=== PATIENT | female | born 1980 | race Hispanic/Latino ===

== ENCOUNTER 2019-04-15 15:16 | Inpatient (IN) | payer OTHER ==
[2019-04-15 15:23] VITALS: BMI 22.6
[2019-04-15 15:33] LABS: ABG ALLEN TEST POS; ARTERIAL BLOOD GAS HCO3 0.7 mmol/L (21-28); ARTERIAL BLOOD GAS O2 SAT 98.5 % (95-98); ARTERIAL BLOOD GAS PCO2 11 mm/Hg (35-45); ARTERIAL BLOOD GAS PH 6.83 (7.35-7.45); ARTERIAL BLOOD GAS PO2 229 mm/Hg (80-100); ARTERIAL BLOOD GAS TCO2 2.1 mmol/L (22-28)
[2019-04-15] MEDS ORDERED: Sodium Chloride 0.9% 1,000 ML IV ONE ×6 (15:41→17:14)
[2019-04-15] MEDS ORDERED: Sodium Bicarbonate (8.4%) 50 Meq Syringe IVP ONE ×6 (15:41→18:20)
[2019-04-15] MEDS ORDERED: Insulin Human Regular 100 UNIT in Sodium Chloride 0.9% 99 ML IV STA ×2 (15:45→23:18)
[2019-04-15] MEDS ORDERED: Sodium Bicarbonate (8.4%) 50 mEq Vial ONE ×2 (15:45→15:59)
[2019-04-15] MEDS ORDERED: (Novolin R) Insulin Human Regular 100 units/ml vial IV STA (15:45)
[2019-04-15] MEDS ORDERED: Calcium Gluconate 4.65 mEq/10 ml Inj ONE (15:57)
[2019-04-15] MEDS ORDERED: Naloxone 0.4 mg/ml Inj (Adult) ONE (15:59)
[2019-04-15 16:00] LABS: INR 0.9; PARTIAL THROMBOPLASTIN TIME 25.2 SECONDS (21-34); PROTHROMBIN TIME 10.3 SECONDS (9.7-12.2)
[2019-04-15 16:02] LABS: BASO # 0.1 K/uL (0.0-0.2); BASO % 0.2 % (0.0-2.0); EOS % 0.2 % (0.0-4.0); LYMPH # 1.3 K/uL (1.0-4.3); LYMPH % 4.2 % (20.0-40.0); MEAN CELL VOLUME 111.6 fL (81.0-99.0); MEAN CORPUSCULAR HEMOGLOBIN 30.4 pg (27.0-31.0); MEAN CORPUSCULAR HGB CONC 27.2 g/dL (33.0-37.0); MEAN PLATELET VOLUME 9.4 fL (7.2-11.7); MONO # 1.5 K/uL (0.0-0.8); MONO % 4.7 % (0.0-10.0); NEUT # 28.4 K/uL (1.8-7.0); NEUT % 90.7 % (50.0-75.0); PLATELET COUNT 442 K/uL (130-400); RBC 3.76 Mil/uL (3.80-5.20); RED CELL DISTRIBUTION WIDTH 15.6 % (11.5-14.5); WHITE BLOOD COUNT 31.3 K/uL (4.8-10.8)
[2019-04-15] MEDS ORDERED: (Novolin R) Insulin Human Regular 100 units/ml vial ONE (16:06)
[2019-04-15] MEDS ORDERED: Norepinephrine 8 MG in Sodium Chloride 0.9% 242 ML IV PRN (16:09)
[2019-04-15 16:13] LABS: CK-MB 4.91 ng/mL (0.0-3.38)
[2019-04-15 16:26] LABS: HEMOGLOBIN 11.4 g/dL (11.0-16.0)
[2019-04-15 16:31] LABS: ALB/GLOB RATIO 2.4 (1.0-2.1); ALBUMIN 4.1 g/dL (3.5-5.0); ALT/SGPT 20 U/L (9-52); AST/SGOT 20 U/L (14-36); BLOOD UREA NITROGEN 60 mg/dL (7-17); GFR NON-AFRICAN AMERICAN 11
--- NOTE | 2019-04-15 16:33 | RAD ---
Date of service: 04/15/2019 HISTORY: hyperventilation, DKA COMPARISON: No prior. TECHNIQUE: 1 view obtained. FINDINGS: LUNGS: No active pulmonary disease. PLEURA: No significant pleural effusion identified, no pneumothorax apparent. CARDIOVASCULAR: No aortic atherosclerotic calcification present. Normal cardiac size. No pulmonary vascular congestion. OSSEOUS STRUCTURES: No significant abnormalities. VISUALIZED UPPER ABDOMEN: Normal. OTHER FINDINGS: None. IMPRESSION: No active disease.
--- NOTE | 2019-04-15 16:46 | CP.PCM.CON ---
<Duarte Angel - Last Filed: 04/15/19 18:03> History of Present Illness - History of Present Illness History of Present Illness: Duarte Angel PGY1 Consult Note for Dr. Annika Chamberlain Patient is a 38yo F with PMH DM type 1 brought in by EMS to ED for unresponsiveness. Patient was found with multiple pill bottles and given narcan x2 in the field. Glucose in the field was >600. Patient was given narcan x2, NS x3 bags, Bicarb 50meq x5 in ED. Patient also given 5ml 0.1 epi, became awake but still not answering questions or following commands. SxH: L facial reconstructions, exlap, tonsillectomy FamH: father [place], mother HTN SocH: no tobacco use. substance use, unknown specific type Allergies: hydrocodone Meds: as per EMR Review of Systems - Review of Systems Systems not reviewed;Unavailable: Acuity of Condition, Unstable Vital Signs, Respiratory Distress, Intoxicated Past Patient History - Infectious Disease Hx of Infectious Diseases: None - Past Medical History & Family History Past Medical History?: Yes - Past Social History Smoking Status: Never Smoked - CARDIAC Hx Cardiac Disorders: No - PULMONARY Hx Respiratory Disorders: No - NEUROLOGICAL Hx Neurological Disorder: No - HEENT Hx HEENT Problems: No - RENAL Hx Chronic Kidney Disease: No - ENDOCRINE/METABOLIC Hx Endocrine Disorders: Yes Hx Diabetes Mellitus Type 1: Yes - HEMATOLOGICAL/ONCOLOGICAL Hx Blood Disorders: No - INTEGUMENTARY Hx Dermatological Problems: No - MUSCULOSKELETAL/RHEUMATOLOGICAL Hx Musculoskeletal Disorders: Yes Other/Comment: LYME DISEASE - GASTROINTESTINAL Hx Gastrointestinal Disorders: No - GENITOURINARY/GYNECOLOGICAL Hx Genitourinary Disorders: No - PSYCHIATRIC Hx Psychophysiologic Disorder: No Hx Emotional Abuse: No Hx Physical Abuse: No Hx Substance Use: No - SURGICAL HISTORY Hx Surgeries: Yes Hx Tonsillectomy: Yes Other/Comment: FACIAL RECONSTRUCTION,LYMPH NODE BX - ANESTHESIA Hx Anesthesia: Yes Hx Anesthesia Reactions: No Hx Malignant Hyperthermia: No Meds Allergies/Adverse Reactions: Allergies Allergy/AdvReac Type Severity Reaction Status Date / Time hydrocodone Allergy ITCHING Verified 04/01/17 10:02 - Medications Medications: Current Medications Insulin Human Regular 100 unit (/ Sodium Chloride) 100 mls @ 10 mls/hr IV .Q10H STA Stop: 04/16/19 01:44 Sodium Chloride (Sodium Chloride 0.9%) 1,000 mls @ 1,000 mls/hr IV .Q1H ONE Stop: 04/15/19 16:46 Piperacillin Sod/Tazobactam Sod (Zosyn 3.375 Gm Iv Premix) 3.375 gm in 50 mls @ 100 mls/hr IVPB Q8H COSME; Protocol Norepinephrine Bitartrate 8 mg (/ Sodium Chloride) 250 mls @ 7.5 mls/hr IV .Q24H PRN; Protocol PRN Reason: TITRATE PER MD ORDER Physical Exam - Constitutional Appears: In Acute Distress, Unkempt - Head Exam Head Exam: ATRAUMATIC, NORMAL INSPECTION, NORMOCEPHALIC - Eye Exam Pupil Exam: Fixed, Mydriatic - ENT Exam ENT Exam: Mucous Membranes Dry - Neck Exam Neck exam: Positive for: Normal Inspection - Respiratory Exam Respiratory Exam: Decreased Breath Sounds, Respiratory Distress. absent: Rales, Wheezes, Stridor - Cardiovascular Exam Cardiovascular Exam: Tachycardia, +S1, +S2. absent: Gallop, Rubs - GI/Abdominal Exam GI & Abdominal Exam: Normal Bowel Sounds, Soft. absent: Distended, Guarding, Tenderness - Extremities Exam Extremities exam: Positive for: normal capillary refill, normal inspection, pedal pulses present - Back Exam Back exam: NORMAL INSPECTION - Neurological Exam Neurological exam: Altered - Skin Skin Exam: Intact, Normal Color Results - Vital Signs Recent Vital Signs: Last Vital Signs Temp 94 F L 04/15/19 16:06 Pulse Resp 20 04/15/19 15:23 BP Pulse Ox - Labs Result Diagrams: 04/15/19 15:41 04/15/19 15:41 Labs: Laboratory Results - last 24 hr 04/15/19 04/15/19 04/15/19 15:20 15:25 15:41 WBC RBC Hgb Hct MCV MCH MCHC RDW Plt Count MPV Neut % (Auto) Lymph % (Auto) [place] % (Auto) Eos % (Auto) Baso % (Auto) Neut # (Auto) Lymph # (Auto) [place] # (Auto) Eos # (Auto) Baso # (Auto) PT INR APTT Puncture Site Rra pCO2 11 L* pO2 229 H HCO3 0.7 L* ABG pH 6.83 L* ABG Total CO2 2.1 L ABG O2 Saturation 98.5 H ABG Base Excess -31.1 L Dusty Test Pos ABG Potassium 5.6 H A-a O2 Difference 470.0 Respiratory Index 2.1 Sodium 132.0 129 L Chloride 89.0 L 84 L Glucose > 750 H* Lactate 3.3 H Liter Flow 15.0 FiO2 100.0 Crit Value Called To Dr wang Crit Value Called By [facility] Crit Value Read Back Y Blood Gas Notified Time 1533 Potassium 6.5 H* D Carbon Dioxide < 5 L* D Anion Gap 47 H BUN 60 H Creatinine 4.6 H Est GFR ( Amer) 13 Est GFR (Non-Af Amer) 11 POC Glucose (mg/dL) > 500 H* Random Glucose 1359 H* Calcium 8.0 L Phosphorus 13.2 H Magnesium 2.7 H Total Bilirubin 0.3 AST 20 ALT 20 Alkaline Phosphatase 121 Total Creatine Kinase 88 CK-MB (Mass) 4.91 H Troponin I < 0.0120 Total Protein 5.8 L Albumin 4.1 Globulin 1.7 L Albumin/Globulin Ratio 2.4 H Arterial Blood Potassium 5.6 H 04/15/19 04/15/19 15:41 15:41 WBC 31.3 H RBC 3.76 L Hgb 11.4 D Hct 41.9 MCV 111.6 H D MCH 30.4 MCHC 27.2 L RDW 15.6 H Plt Count 442 H MPV 9.4 Neut % (Auto) 90.7 H Lymph % (Auto) 4.2 L [place] % (Auto) 4.7 Eos % (Auto) 0.2 Baso % (Auto) 0.2 Neut # (Auto) 28.4 H Lymph # (Auto) 1.3 [place] # (Auto) 1.5 H Eos # (Auto) 0.0 Baso # (Auto) 0.1 PT 10.3 INR 0.9 APTT 25.2 Puncture Site pCO2 pO2 HCO3 ABG pH ABG Total CO2 ABG O2 Saturation ABG Base Excess Dusty Test ABG Potassium A-a O2 Difference Respiratory Index Sodium Chloride Glucose Lactate Liter Flow FiO2 Crit Value Called To Crit Value Called By Crit Value Read Back Blood Gas Notified Time Potassium Carbon Dioxide Anion Gap BUN Creatinine Est GFR ( Amer) Est GFR (Non-Af Amer) POC Glucose (mg/dL) Random Glucose Calcium Phosphorus Magnesium Total Bilirubin AST ALT Alkaline Phosphatase Total Creatine Kinase CK-MB (Mass) Troponin I Total Protein Albumin Globulin Albumin/Globulin Ratio Arterial Blood Potassium Assessment & Plan - Assessment and Plan (Free Text) Assessment: 38yo F with PMH DM type I brought into ED by ems for unresponsiveness, found with various prescription medications beside her. Admitted to ICU for DKA, severe acidosis. Plan: Neuro: - polysubstance abuse, respiratory distress, DKA - unable to assess orientation - awake - CT head: no acute intracranial abnormalities - f/u UDS Cardiovascular: - hypotension - start levophed @ 4mcg/min - maintain normotension - tachycardia - given 5ml 0.1 epi in ED Pulm: - ABG: pH 6.83/CO2 11/O2 229/HCO3 0.7 - severe acidosis - sating 100% on room air - CXR: possible R lower lobe infiltrate, avoid aspiration - zosyn 3.375 q8h - maintain O2 sat >92% GI: - no active issues Renal: - acute renal failure - NS x5 bags - bicarb 50meq x5 in ED - Bicarb 75 meq in 1/2 NS @75cc/hr Endo: - DKA - insulin 10u given in ED - insulin drip - NS x5 bags - NS @200cc/hr - accuchecks q1h - rpt CMP, Mg, Phos q6h - f/u UA ID: - cover for aspiration PNA - leukocytosis - afebrile - zosyn 3.375 q8h PPX GI: pepcid IV DVT: heparin SC Dispo: Insulin drip. Levophed @4 mcg/min. Accuchecks q1h. Continue to hydrate Patient seen and case discussed with Dr. Annika Chamberlain <Wes Chamberlain - Last Filed: 04/15/19 18:40> Meds - Medications Medications: Current Medications Famotidine (Pepcid) 20 mg IVP DAILY COSME Heparin Sodium (Porcine) (Heparin) 5,000 units SC Q12H COSME Insulin Human Regular 100 unit (/ Sodium Chloride) 100 mls @ 10 mls/hr IV .Q10H STA Stop: 04/16/19 01:44 Last Admin: 04/15/19 17:05 Dose: 10 mls/hr Piperacillin Sod/Tazobactam Sod (Zosyn 3.375 Gm Iv Premix) 3.375 gm in 50 mls @ 100 mls/hr IVPB Q8H COSME; Protocol Last Admin: 04/15/19 18:01 Dose: 100 mls/hr Norepinephrine Bitartrate 8 mg (/ Sodium Chloride) 250 mls @ 7.5 mls/hr IV .Q24H PRN; Protocol PRN Reason: TITRATE PER MD ORDER Last Admin: 04/15/19 17:40 Dose: 15 mcg/min, 28.13 mls/hr Sodium Chloride (Sodium Chloride 0.9%) 1,000 mls @ 200 mls/hr IV .Q5H COSME Last Admin: 04/15/19 17:42 Dose: 200 mls/hr Sodium Bicarbonate 75 meq/ (Sodium Chloride) 1,075 mls @ 200 mls/hr IV .Q5H23M COSME Last Admin: 04/15/19 17:59 Dose: 200 mls/hr Results - Vital Signs Recent Vital Signs: Last Vital Signs Temp 94 F L 04/15/19 16:06 Pulse 159 H 04/15/19 18:10 Resp 22 04/15/19 18:10 BP 70/50 L 04/15/19 17:40 Pulse Ox 100 04/15/19 18:36 - Labs Result Diagrams: 04/15/19 15:41 04/15/19 15:41 Labs: Laboratory Results - last 24 hr 04/15/19 04/15/19 04/15/19 15:20 15:25 15:41 WBC RBC Hgb Hct MCV MCH MCHC RDW Plt Count MPV Neut % (Auto) Lymph % (Auto) [place] % (Auto) Eos % (Auto) Baso % (Auto) Neut # (Auto) Lymph # (Auto) [place] # (Auto) Eos # (Auto) Baso # (Auto) Neutrophils % (Manual) Band Neutrophils % Lymphocytes % (Manual) Monocytes % (Manual) Platelet Estimate PT INR APTT Puncture Site Rra pCO2 11 L* pO2 229 H HCO3 0.7 L* ABG pH 6.83 L* ABG Total CO2 2.1 L ABG O2 Saturation 98.5 H ABG Base Excess -31.1 L Dusty Test Pos ABG Potassium 5.6 H A-a O2 Difference 470.0 Respiratory Index 2.1 Sodium 132.0 129 L Chloride 89.0 L 84 L Glucose > 750 H* Lactate 3.3 H Liter Flow 15.0 FiO2 100.0 Crit Value Called To Dr wang Crit Value Called By [facility] Crit Value Read Back Y Blood Gas Notified Time 1533 Potassium 6.5 H* D Carbon Dioxide < 5 L* D Anion Gap 47 H BUN 60 H Creatinine 4.6 H Est GFR ( Amer) 13 Est GFR (Non-Af Amer) 11 POC Glucose (mg/dL) > 500 H* Random Glucose 1359 H* Calcium 8.0 L Phosphorus 13.2 H Magnesium 2.7 H Total Bilirubin 0.3 AST 20 ALT 20 Alkaline Phosphatase 121 Total Creatine Kinase 88 CK-MB (Mass) 4.91 H Troponin I < 0.0120 Total Protein 5.8 L Albumin 4.1 Globulin 1.7 L Albumin/Globulin Ratio 2.4 H Arterial Blood Potassium 5.6 H Urine Color Urine Clarity Urine pH Ur Specific Pfeifer Urine Protein Urine Glucose (UA) Urine Ketones Urine Blood Urine Nitrate Urine Bilirubin Urine Urobilinogen Ur Leukocyte Esterase Urine WBC (Auto) Urine RBC (Auto) Ur Squamous Epith Cells Urine Bacteria Urine HCG, Qual Urine Opiates Screen Urine Methadone Screen Ur Barbiturates Screen Ur Phencyclidine Scrn Ur Amphetamines Screen U Benzodiazepines Scrn U Oth Cocaine Metabols U Cannabinoids Screen B-Hydroxybutyrate 16.8 H 04/15/19 04/15/19 04/15/19 15:41 15:41 17:14 WBC 31.3 H RBC 3.76 L Hgb 11.4 D Hct 41.9 MCV 111.6 H D MCH 30.4 MCHC 27.2 L RDW 15.6 H Plt Count 442 H MPV 9.4 Neut % (Auto) 90.7 H Lymph % (Auto) 4.2 L [place] % (Auto) 4.7 Eos % (Auto) 0.2 Baso % (Auto) 0.2 Neut # (Auto) 28.4 H Lymph # (Auto) 1.3 [place] # (Auto) 1.5 H Eos # (Auto) 0.0 Baso # (Auto) 0.1 Neutrophils % (Manual) 83 H Band Neutrophils % 5 H Lymphocytes % (Manual) 6 L Monocytes % (Manual) 6 Platelet Estimate Slightly increased H PT 10.3 INR 0.9 APTT 25.2 Puncture Site pCO2 pO2 HCO3 ABG pH ABG Total CO2 ABG O2 Saturation ABG Base Excess Dusty Test ABG Potassium A-a O2 Difference Respiratory Index Sodium Chloride Glucose Lactate Liter Flow FiO2 Crit Value Called To Crit Value Called By Crit Value Read Back Blood Gas Notified Time Potassium Carbon Dioxide Anion Gap BUN Creatinine Est GFR ( Amer) Est GFR (Non-Af Amer) POC Glucose (mg/dL) Random Glucose Calcium Phosphorus Magnesium Total Bilirubin AST ALT Alkaline Phosphatase Total Creatine Kinase CK-MB (Mass) Troponin I Total Protein Albumin Globulin Albumin/Globulin Ratio Arterial Blood Potassium Urine Color Yellow Urine Clarity Hazy Urine pH 5.0 Ur Specific Pfeifer 1.016 Urine Protein Negative Urine Glucose (UA) 3+ H Urine Ketones 1+ H Urine Blood 2+ H Urine Nitrate Negative Urine Bilirubin Negative Urine Urobilinogen Normal Ur Leukocyte Esterase Neg Urine WBC (Auto) 7 H Urine RBC (Auto) 1 Ur Squamous Epith Cells 1 Urine Bacteria Rare Urine HCG, Qual Negative Urine Opiates Screen Urine Methadone Screen Ur Barbiturates Screen Ur Phencyclidine Scrn Ur Amphetamines Screen U Benzodiazepines Scrn U Oth Cocaine Metabols U Cannabinoids Screen B-Hydroxybutyrate 04/15/19 04/15/19 17:14 17:55 WBC RBC Hgb Hct MCV MCH MCHC RDW Plt Count MPV Neut % (Auto) Lymph % (Auto) [place] % (Auto) Eos % (Auto) Baso % (Auto) Neut # (Auto) Lymph # (Auto) [place] # (Auto) Eos # (Auto) Baso # (Auto) Neutrophils % (Manual) Band Neutrophils % Lymphocytes % (Manual) Monocytes % (Manual) Platelet Estimate PT INR APTT Puncture Site Rra pCO2 17 L* pO2 36 L* HCO3 0.8 L* ABG pH 6.89 L* ABG Total CO2 3.8 L ABG O2 Saturation 69.5 L ABG Base Excess -28.6 L Dusty Test Na ABG Potassium 2.5 L* A-a O2 Difference 178.0 Respiratory Index 4.9 Sodium 147.0 Chloride 113.0 H Glucose 538 H* D Lactate 4.1 H* Liter Flow 3.0 FiO2 33.0 Crit Value Called To Dr huma chamberlain Crit Value Called By Cirilo rt Crit Value Read Back Y Blood Gas Notified Time 1801 Potassium Carbon Dioxide Anion Gap BUN Creatinine Est GFR ( Amer) Est GFR (Non-Af Amer) POC Glucose (mg/dL) Random Glucose Calcium Phosphorus Magnesium Total Bilirubin AST ALT Alkaline Phosphatase Total Creatine Kinase CK-MB (Mass) Troponin I Total Protein Albumin Globulin Albumin/Globulin Ratio Arterial Blood Potassium 2.5 L* Urine Color Urine Clarity Urine pH Ur Specific Pfeifer Urine Protein Urine Glucose (UA) Urine Ketones Urine Blood Urine Nitrate Urine Bilirubin Urine Urobilinogen Ur Leukocyte Esterase Urine WBC (Auto) Urine RBC (Auto) Ur Squamous Epith Cells Urine Bacteria Urine HCG, Qual Urine Opiates Screen Negative Urine Methadone Screen Negative Ur Barbiturates Screen Negative Ur Phencyclidine Scrn Negative Ur Amphetamines Screen Negative U Benzodiazepines Scrn Negative U Oth Cocaine Metabols Negative U Cannabinoids Screen Negative B-Hydroxybutyrate Assessment & Plan - Assessment and Plan (Free Text) Plan: Patient seen and examined at bedside in ER and multiple times during ER and ICU stay. Patient hyperventilating, arousable. - I pushed 5 amps of bicarb and narcan and ordered 5 liters of NS as patient not responsive. After above intervention, patient awakend, moving all extremities -DKA: severe metabolic acidosis, push bicarb to keep pH >7.0. start NS + insulin ggt, monitor urine output, serial cmp/mag/phos, BGM q1hrs, 10 units of insulin + NS, anion gap pending -RICCO: suspect 2nd severe dehydration -Shock; start norepi to keep MAP >65 -Sepsis: suspect aspiration, start zosyn + doxy, serial lactic, alas culture pending -dvt ppx heparin sq -PUD ppx protonix -serial check and replace electrolytes -AMS: check Utox/urine oxycodone and CT head, ammonia, drug screen -Patient remains critical and will benefit from ICu level care cc time 60 minutes Patient's mother called who informed ICU team that patient has had previous admissions to hospitals for uncontrolled blood sugar. -continue to monitor -low threshold of intubation, if patient not able to hyperventilate or protect airway. Prognosis guarded as multiple diagnostic tests pending - Date & Time Date: 04/15/19 Time: 18:40
[2019-04-15] MEDS ORDERED: Piperacill/Tazo 3.375gm in Dex 3.375 GM/50 ML BAG IVPB SCH (17:00)
--- NOTE | 2019-04-15 17:04 | CT ---
Date of service: 04/15/2019 PROCEDURE: CT HEAD WITHOUT CONTRAST. HISTORY: DKA, intoxication COMPARISON: None available. TECHNIQUE: Axial computed tomography images were obtained through the head/brain without intravenous contrast. Radiation dose: Total exam DLP = 1338.81 mGy-cm. This CT exam was performed using one or more of the following dose reduction techniques: Automated exposure control, adjustment of the mA and/or kV according to patient size, and/or use of iterative reconstruction technique. FINDINGS: HEMORRHAGE: No intracranial hemorrhage. BRAIN: No mass effect or edema. No atrophy or chronic microvascular ischemic changes. VENTRICLES: Unremarkable. No hydrocephalus. CALVARIUM: Unremarkable. PARANASAL SINUSES: No evidence of sinusitis. Status post repair of left orbital floor and lamina papyracea fractures. MASTOID AIR CELLS: Unremarkable as visualized. No inflammatory changes. OTHER FINDINGS: None. IMPRESSION: No intracranial mass, hemorrhage or evidence of acute infarct.
[2019-04-15] MEDS ORDERED: Sodium Chloride 0.9% 1,000 ML IV SCH ×2 (17:15→21:28)
[2019-04-15 17:24] LABS: HCG,QUALITATIVE URINE NEGATIVE (NEGATIVE)
[2019-04-15 17:28] LABS: SQUAMOUS EPITHIAL 1 /hpf (0-5); URINE BACTERIA RARE (<OCC); URINE BILIRUBIN NEGATIVE (NEGATIVE); URINE BLOOD 2+ (NEGATIVE); URINE CLARITY Hazy (Clear); URINE COLOR Yellow (YELLOW); URINE GLUCOSE (UA) 3+ mg/dL (Normal); URINE LEUKOCYTE ESTERASE NEG Leu/uL (Negative); URINE PROTEIN NEGATIVE (NEGATIVE); URINE UROBILINOGEN NORMAL mg/dL (0.2-1.0)
[2019-04-15] MEDS ORDERED: EPINEPHrine 1 mg/ml (1:1000) Inj IV ONE (17:34)
[2019-04-15 17:42] LABS: BARBITURATES, UR NEGATIVE (NEGATIVE); BENZODIAZEPINES, UR NEGATIVE (NEGATIVE); OPIATES, UR NEGATIVE (NEGATIVE); PHENCYCLIDINE, UR NEGATIVE (NEGATIVE)
[2019-04-15 18:01] LABS: ARTERIAL BLOOD GAS HCO3 0.8 mmol/L (21-28); ARTERIAL BLOOD GAS O2 SAT 69.5 % (95-98); ARTERIAL BLOOD GAS PCO2 17 mm/Hg (35-45); ARTERIAL BLOOD GAS PH 6.89 (7.35-7.45); ARTERIAL BLOOD GAS PO2 36 mm/Hg (80-100); ARTERIAL BLOOD GAS TCO2 3.8 mmol/L (22-28)
[2019-04-15 18:16] LABS: BANDS 5 % (0-2); LYMPHOCYTE 6 % (20-40); MONOCYTE 6 % (0-10); NEUTROPHIL 83 % (50-75); TOTAL CELLS COUNTED 100
[2019-04-15 18:17] LABS: PLATELET ESTIMATE SLIGHTLY INCREASED (NORMAL)
[2019-04-15] MEDS ORDERED: FOMEPIZOLE IV STA ×2 (18:20→19:29)
--- NOTE | 2019-04-15 18:34 | C.PDOC ---
History Of Present Illness 38 y/o female pt presents to the ER by ambulance from home. Per EMS, boyfriend states he called because pt is unresponsive. BLS on route gave 2 mg of narcan intranasally with no response. As per EMS, pupils were dilated on initial ev aluation and blood sugar was greater than 500, no therapy was given. EMS also states failed peripheral access and intraosseous started on the left upper tibia, but it is not effective. Multiple medication bottles of Benzo and narcotics were scattered about pt dwelling with other people in the apartment. EMS also states huffing inhaled recreational drugs and paraphernalia was on the scene. On arrival, Pt was obtunded, unresponsive and dilated pupils. Pt would sometimes move her arms on purpose. Pt has kussmaul breathing with a non- functioning intraosseous in the left upper anterior tibia. Time Seen by Provider: 04/15/19 15:36 Chief Complaint (Nursing): High Blood Sugar History Per: Patient History/Exam Limitations: None Onset/Duration Of Symptoms: Hrs Past Medical History Reviewed: Historical Data, Nursing Documentation, Vital Signs Vital Signs: Last Vital Signs Temp 94 F L 04/15/19 16:06 Pulse 159 H 04/15/19 18:10 Resp 22 04/15/19 18:10 BP 70/50 L 04/15/19 17:40 Pulse Ox 100 04/15/19 18:10 Primary Care Provider: FAMILY PROVIDER,NO - Medical History PMH: Diabetes Surgical History: Cholecystectomy, Endoscopy, Tonsillectomy Family History: States: No Known Family Hx - Social History Hx Alcohol Use: No Hx Substance Use: No Review Of Systems Except As Marked, All Systems Reviewed And Found Negative. Review Of Systems: ROS cannot be obtained secondary to pt's inabilty to answer questions. Respiratory: Positive for: Other (kussmaul breathing ) Musculoskeletal: Positive for: Other (non-functioning intraosseous in the left upper anterior tibia) Physical Exam - Physical Exam Appears: Other (obtunded, unresponsive ) Skin: Other (tented ; no tracks jo-ann on skin) Head: Atraumatic, Normacephalic Eye(s): bilateral: Other (dilated ) Oral Mucosa: Dry Neck: Normal ROM, Supple Respiratory: Other (kussmaul breathing ) Gastrointestinal/Abdominal: Soft, No Tenderness Extremity: Normal ROM (x4), Other (poor peripheral venous access; non- functioning intraosseous in the left upper anterior tibia ) Neurological/Psych: Other (unresponsive) ED Course And Treatment - Laboratory Results Result Diagrams: 04/15/19 22:30 04/15/19 22:30 Lab Results: Puncture Site Rra 04/15/19 17:55 pCO2 17 mm/Hg (35-45) L* 04/15/19 17:55 pO2 36 mm/Hg (80-100) L* 04/15/19 17:55 HCO3 0.8 mmol/L (21-28) L* 04/15/19 17:55 ABG pH 6.89 (7.35-7.45) L* 04/15/19 17:55 ABG Total CO2 3.8 mmol/L (22-28) L 04/15/19 17:55 ABG O2 Saturation 69.5 % (95-98) L 04/15/19 17:55 ABG Base Excess -28.6 mmol/L (-2.0-3.0) L 04/15/19 17:55 Dusty Test Na 04/15/19 17:55 ABG Potassium 2.5 mmol/L (3.6-5.2) L* 04/15/19 17:55 A-a O2 Difference 178.0 mm/Hg 04/15/19 17:55 Respiratory Index 4.9 04/15/19 17:55 Sodium 147.0 mmol/l (132-148) 04/15/19 17:55 Chloride 113.0 mmol/L (98-107) H 04/15/19 17:55 Glucose 538 mg/dl (65-105) H* D 04/15/19 17:55 Lactate 4.1 mmol/L (0.7-2.1) H* 04/15/19 17:55 Liter Flow 3.0 04/15/19 17:55 FiO2 33.0 % 04/15/19 17:55 Crit Value Called To Dr huma chamberlain 04/15/19 17:55 Crit Value Called By Cirilo duncan 04/15/19 17:55 Crit Value Read Back Y 04/15/19 17:55 Blood Gas Notified Time 1801 04/15/19 17:55 PT 10.3 SECONDS (9.7-12.2) 04/15/19 15:41 INR 0.9 04/15/19 15:41 APTT 25.2 SECONDS (21-34) 04/15/19 15:41 Troponin I < 0.0120 ng/mL (0.00-0.120) 04/15/19 15:41 Total Bilirubin 0.3 mg/dL (0.2-1.3) 04/15/19 15:41 AST 20 U/L (14-36) 04/15/19 15:41 ALT 20 U/L (9-52) 04/15/19 15:41 Alkaline Phosphatase 121 U/L (38-126) 04/15/19 15:41 Total Protein 5.8 g/dL (6.3-8.3) L 04/15/19 15:41 Albumin 4.1 g/dL (3.5-5.0) 04/15/19 15:41 Globulin 1.7 gm/dL (2.2-3.9) L 04/15/19 15:41 Albumin/Globulin Ratio 2.4 (1.0-2.1) H 04/15/19 15:41 Urine Color Yellow (YELLOW) 04/15/19 17:14 Urine Clarity Hazy (Clear) 04/15/19 17:14 Urine pH 5.0 (5.0-8.0) 04/15/19 17:14 Ur Specific [place] 1.016 (1.003-1.030) 04/15/19 17:14 Urine Protein Negative mg/dL (NEGATIVE) 04/15/19 17:14 Urine Glucose (UA) 3+ mg/dL (Normal) H 04/15/19 17:14 Urine Ketones 1+ mg/dL (NEGATIVE) H 04/15/19 17:14 Urine Blood 2+ (NEGATIVE) H 04/15/19 17:14 Urine Nitrate Negative (NEGATIVE) 04/15/19 17:14 Urine Bilirubin Negative (NEGATIVE) 04/15/19 17:14 Urine Urobilinogen Normal mg/dL (0.2-1.0) 04/15/19 17:14 Ur Leukocyte Esterase Neg [place]antell/uL (Negative) 04/15/19 17:14 Urine WBC (Auto) 7 /hpf (0-5) H 04/15/19 17:14 Urine RBC (Auto) 1 /hpf (0-3) 04/15/19 17:14 Ur Squamous Epith Cells 1 /hpf (0-5) 04/15/19 17:14 Urine Bacteria Rare (<OCC) 04/15/19 17:14 Urine HCG, Qual Negative (NEGATIVE) 04/15/19 17:14 Urine HCG, Qual Negative (NEGATIVE) 04/15/19 17:14 O2 Sat by Pulse Oximetry: 100 (RA) Pulse Ox Interpretation: Normal Critical Care Time - Critical Care Note Total Time (in mins): 90 Documented critical care: time excludes all time spent performing seperately billable procedures. Medical Decision Making Medical Decision Making: Procedure TLC to the right groin; on first attempt right femoral vein, extensive medications given for about 60 minutes Pt blood pressure is dropping critically low. Epinephrine was given which significantly improved pt blood pressure and heart rate. Pt became verbal with incoherent moaning and was able to answer her name correctly. 3:20 PM Pt arrived to ER 3:45 PM Discuss case with ICU 4:00 PM Discuss case with Dr. Toth; agrees to admit pt. DKA ? underlying drug abuse Head CT no acute findings. Disposition Doctor Will See Patient In The: Hospital Counseled Patient/Family Regarding: Studies Performed, Diagnosis - Disposition Disposition: HOSPITALIZED Disposition Time: 16:00 Condition: CRITICAL - Clinical Impression Clinical Impression: Dehydration, DKA (diabetic ketoacidoses) - Scribe Statement The provider has reviewed the documentation as recorded by the Scribroxy Birch Do Provider Attestation: All medical record entries made by the Scribe were at my direction and personally dictated by me. I have reviewed the chart and agree that the record accurately reflects my personal performance of the history, physical exam, [facility] decision making, and the department course for this patient. I have also personally directed, reviewed, and agree with the discharge instructions and disposition.
[2019-04-15 19:20] LABS: ALB/GLOB RATIO 1.5 (1.0-2.1); ALBUMIN 2.7 g/dL (3.5-5.0); CALCIUM 6.8 mg/dl (8.6-10.4)
--- NOTE | 2019-04-15 19:51 | PCM.SEPTIC ---
Sepsis Progress Note - Reassessment Type Date of Evaluation: 04/15/19 Time of Evaluation: 19:50 Reassessment Type: Invasive reassessment - Non Invasive Reassessment Were the most recent vital sign reviewed: Yes Vital Sign (Latest): Temp Pulse Resp BP Pulse Ox 93.1 F L 146 H 28 H 105/42 L 98 04/15/19 17:45 04/15/19 19:40 04/15/19 19:40 04/15/19 19:08 04/15/19 19:40 Cardiovascular: Yes: Tachycardia Respiratory: Yes: Normal Breath Sounds, Respiratory Distress. No: Rales, Rhonchi, Stridor, Wheezing Capillary Refill: Normal (Less than 2 sec) Pulses: Normal Radial, Normal Dorsalis Pedis, Normal Posterior Tibialis Skin: Normal Color, Warm, Dry - Invasive Reassessment (complete 2 of 4) Was a Central Venous Pressure Measurement obtained within 6 Hours after the presentation of septic shock: Yes Central Venous Pressure in mmHg via central catheter: 8 Was a central venous oxygen measurement obtained within 6 hours after the presentation of septic shock: No Was a bedside cardiovascular ultrasound performed within 6 hours after the presentation of septic shock: No Was a passive leg raise performed or was a fluid challenge performed within 6 hrs of the initial fluid bolus: No Fluid Challenge performed: Yes
[2019-04-15 20:27] LABS: VENOUS BLOOD GAS BASE EXCESS -16.1 mmol/L (0.0-2.0); VENOUS BLOOD GAS PCO2 24 mmHg (40-60); VENOUS BLOOD GAS PO2 40 mm/Hg (30-55); VENOUS BLOOD PH 7.22 (7.32-7.43)
[2019-04-15 20:28] LABS: BASO # 0.1 K/uL (0.0-0.2); BASO % 0.3 % (0.0-2.0); EOS # 0.2 K/uL (0.0-0.7); EOS % 0.5 % (0.0-4.0); HEMOGLOBIN 10.4 g/dL (11.0-16.0); LYMPH # 2.9 K/uL (1.0-4.3); LYMPH % 7.6 % (20.0-40.0); MEAN CELL VOLUME 91.5 fL (81.0-99.0); MEAN CORPUSCULAR HEMOGLOBIN 30.3 pg (27.0-31.0); MEAN CORPUSCULAR HGB CONC 33.1 g/dL (33.0-37.0); MEAN PLATELET VOLUME 7.6 fL (7.2-11.7); MONO # 0.8 K/uL (0.0-0.8); MONO % 2.1 % (0.0-10.0); NEUT # 33.8 K/uL (1.8-7.0); NEUT % 89.5 % (50.0-75.0); PLATELET COUNT 355 K/uL (130-400); RBC 3.43 Mil/uL (3.80-5.20); RED CELL DISTRIBUTION WIDTH 13.6 % (11.5-14.5)
[2019-04-15 20:35] LABS: WHITE BLOOD COUNT 37.7 K/uL (4.8-10.8)
[2019-04-15] MEDS ORDERED: SODIUM CHLORIDE 0.9% IV ONE (21:00)
[2019-04-15] MEDS ORDERED: FOMEPIZOLE IV ONE (21:00)
[2019-04-15 21:05] LABS: ALB/GLOB RATIO 1.7 (1.0-2.1); CALCIUM 6.8 mg/dl (8.6-10.4)
[2019-04-15] MEDS: Meropenem 500 MG in Sodium Chloride 0.9% 100 ML IVPB SCH (21:14)
[2019-04-15 21:51] LABS: BANDS 5 % (0-2); LYMPHOCYTE 4 % (20-40); MONOCYTE 2 % (0-10); NEUTROPHIL 89 % (50-75); PLATELET ESTIMATE NORMAL (NORMAL); TOTAL CELLS COUNTED 100
[2019-04-15] MEDS ORDERED: Potassium Chloride 40 MEQ in Sodium Chloride 0.45% 1,000 ML IV ONE (22:00)
[2019-04-15 22:30] LABS: VENOUS BLOOD GAS BASE EXCESS -10.4 mmol/L (0.0-2.0); VENOUS BLOOD GAS PCO2 23 mmHg (40-60); VENOUS BLOOD GAS PO2 55 mm/Hg (30-55); VENOUS BLOOD PH 7.36 (7.32-7.43)
[2019-04-15 22:34] LABS: BASO # 0.1 K/uL (0.0-0.2); BASO % 0.2 % (0.0-2.0); EOS # 0.1 K/uL (0.0-0.7); EOS % 0.3 % (0.0-4.0); HEMOGLOBIN 10.2 g/dL (11.0-16.0); LYMPH # 1.6 K/uL (1.0-4.3); LYMPH % 4.9 % (20.0-40.0); MEAN CORPUSCULAR HGB CONC 33.7 g/dL (33.0-37.0); MEAN PLATELET VOLUME 7.7 fL (7.2-11.7); MONO # 0.9 K/uL (0.0-0.8); MONO % 2.7 % (0.0-10.0); NEUT # 30.5 K/uL (1.8-7.0); NEUT % 91.9 % (50.0-75.0); RBC 3.39 Mil/uL (3.80-5.20); RED CELL DISTRIBUTION WIDTH 13.7 % (11.5-14.5); WHITE BLOOD COUNT 33.2 K/uL (4.8-10.8)
[2019-04-15 22:55] LABS: ALB/GLOB RATIO 1.5 (1.0-2.1); ALBUMIN 2.9 g/dL (3.5-5.0); CALCIUM 7.3 mg/dl (8.6-10.4)
[2019-04-16] MEDS: Potassium Phosphate 15 MMOLE in Sodium Chloride 0.9% 250 ML IVPB SCH ×3 (00:13→23:48)
[2019-04-16 03:00] LABS: OSMOLALITY,URINE 496 mosm/kg (300-1000)
[2019-04-16 03:05] LABS: ALB/GLOB RATIO 1.4 (1.0-2.1); ALBUMIN 2.9 g/dL (3.5-5.0); CALCIUM 7.2 mg/dl (8.6-10.4)
[2019-04-16 03:25] LABS: CREATININE, RANDOM URINE 32 mg/dL
[2019-04-16 03:32] LABS: OXYCODONE, UR POSITIVE (NEGATIVE)
[2019-04-16] MEDS: Meropenem 500 MG in Sodium Chloride 0.9% 100 ML IVPB SCH ×3 (04:02→20:12)
[2019-04-16 04:12] LABS: BASO % 0.1 % (0.0-2.0); EOS % 0.1 % (0.0-4.0); HEMOGLOBIN 9.8 g/dL (11.0-16.0); LYMPH # 0.8 K/uL (1.0-4.3); MEAN CELL VOLUME 87.3 fL (81.0-99.0); MEAN CORPUSCULAR HEMOGLOBIN 30.3 pg (27.0-31.0); MEAN CORPUSCULAR HGB CONC 34.7 g/dL (33.0-37.0); MONO # 0.9 K/uL (0.0-0.8); MONO % 3.2 % (0.0-10.0); NEUT % 93.6 % (50.0-75.0); PLATELET COUNT 307 K/uL (130-400); RBC 3.22 Mil/uL (3.80-5.20); RED CELL DISTRIBUTION WIDTH 13.5 % (11.5-14.5); WHITE BLOOD COUNT 26.7 K/uL (4.8-10.8)
--- NOTE | 2019-04-16 04:35 | CP.PCM.HP ---
Present on Admission - Present on Admission Any Indicators Present on Admission: Yes History of Uncontrolled Diabetes: Yes Past Patient History - Infectious Disease Hx of Infectious Diseases: None - Past Medical History & Family History Past Medical History?: Yes - Past Social History Smoking Status: Never Smoked - CARDIAC Hx Cardiac Disorders: No - PULMONARY Hx Respiratory Disorders: No - NEUROLOGICAL Hx Neurological Disorder: No - HEENT Hx HEENT Problems: No - RENAL Hx Chronic Kidney Disease: No - ENDOCRINE/METABOLIC Hx Endocrine Disorders: Yes Hx Diabetes Mellitus Type 1: Yes - HEMATOLOGICAL/ONCOLOGICAL Hx Blood Disorders: No - INTEGUMENTARY Hx Dermatological Problems: No - MUSCULOSKELETAL/RHEUMATOLOGICAL Hx Musculoskeletal Disorders: Yes Other/Comment: LYME DISEASE - GASTROINTESTINAL Hx Gastrointestinal Disorders: No - GENITOURINARY/GYNECOLOGICAL Hx Genitourinary Disorders: No - PSYCHIATRIC Hx Substance Use: No - SURGICAL HISTORY Hx Cholecystectomy: Yes Hx Tonsillectomy: Yes - ANESTHESIA Hx Anesthesia: Yes Hx Anesthesia Reactions: No Hx Malignant Hyperthermia: No Meds Allergies/Adverse Reactions: Allergies Allergy/AdvReac Type Severity Reaction Status Date / Time hydrocodone Allergy ITCHING Verified 04/01/17 10:02 Results - Vital Signs Recent Vital Signs: Last Vital Signs Temp 98.9 F 04/16/19 04:00 Pulse 128 H 04/16/19 04:30 Resp 18 04/16/19 04:30 BP 96/38 L 04/16/19 04:31 Pulse Ox 96 04/16/19 04:30 - Labs Result Diagrams: 04/16/19 04:06 04/16/19 02:50 Labs: Laboratory Results - last 24 hr 04/15/19 04/15/19 04/15/19 15:20 15:25 15:41 WBC RBC Hgb Hct MCV MCH MCHC RDW Plt Count MPV Neut % (Auto) Lymph % (Auto) [place] % (Auto) Eos % (Auto) Baso % (Auto) Neut # (Auto) Lymph # (Auto) [place] # (Auto) Eos # (Auto) Baso # (Auto) Neutrophils % (Manual) Band Neutrophils % Lymphocytes % (Manual) Monocytes % (Manual) Platelet Estimate PT INR APTT Puncture Site Rra pCO2 11 L* pO2 229 H HCO3 0.7 L* ABG pH 6.83 L* ABG Total CO2 2.1 L ABG O2 Saturation 98.5 H ABG Base Excess -31.1 L Dusty Test Pos ABG Potassium 5.6 H VBG pH VBG pCO2 VBG HCO3 VBG Total CO2 VBG O2 Sat (Calc) VBG Base Excess VBG Potassium A-a O2 Difference 470.0 Respiratory Index 2.1 Sodium 132.0 129 L Chloride 89.0 L 84 L Glucose > 750 H* Lactate 3.3 H Liter Flow 15.0 FiO2 100.0 Crit Value Called To Dr wang Crit Value Called By [facility] Crit Value Read Back Y Blood Gas Notified Time 1533 Potassium 6.5 H* D Carbon Dioxide < 5 L* D Anion Gap 47 H BUN 60 H Creatinine 4.6 H Est GFR ( Amer) 13 Est GFR (Non-Af Amer) 11 POC Glucose (mg/dL) > 500 H* Random Glucose 1359 H* Hemoglobin A1c Serum Osmolality Calcium 8.0 L Phosphorus 13.2 H Magnesium 2.7 H Total Bilirubin 0.3 AST 20 ALT 20 Alkaline Phosphatase 121 Total Creatine Kinase 88 CK-MB (Mass) 4.91 H Troponin I < 0.0120 Total Protein 5.8 L Albumin 4.1 Globulin 1.7 L Albumin/Globulin Ratio 2.4 H TSH 3rd Generation Arterial Blood Potassium 5.6 H Venous Blood Potassium Urine Color Urine Clarity Urine pH Ur Specific [place] Urine Protein Urine Glucose (UA) Urine Ketones Urine Blood Urine Nitrate Urine Bilirubin Urine Urobilinogen Ur Leukocyte Esterase Urine WBC (Auto) Urine RBC (Auto) Ur Squamous Epith Cells Urine Bacteria Urine Osmolality Ur Random Creatinine U Random Total Protein Ur Random Sodium Ur Random Potassium Ur Random Phosphorus Ur Random Glucose Ur Random Calcium Urine Magnesium Urine HCG, Qual Urine Opiates Screen U Oxycodone Qual Urine Methadone Screen Ur Barbiturates Screen Ur Phencyclidine Scrn Ur Amphetamines Screen U Benzodiazepines Scrn U Oth Cocaine Metabols U Cannabinoids Screen B-Hydroxybutyrate 16.8 H 04/15/19 04/15/19 04/15/19 15:41 15:41 17:14 WBC 31.3 H RBC 3.76 L Hgb 11.4 D Hct 41.9 MCV 111.6 H D MCH 30.4 MCHC 27.2 L RDW 15.6 H Plt Count 442 H MPV 9.4 Neut % (Auto) 90.7 H Lymph % (Auto) 4.2 L [place] % (Auto) 4.7 Eos % (Auto) 0.2 Baso % (Auto) 0.2 Neut # (Auto) 28.4 H Lymph # (Auto) 1.3 [place] # (Auto) 1.5 H Eos # (Auto) 0.0 Baso # (Auto) 0.1 Neutrophils % (Manual) 83 H Band Neutrophils % 5 H Lymphocytes % (Manual) 6 L Monocytes % (Manual) 6 Platelet Estimate Slightly increased H PT 10.3 INR 0.9 APTT 25.2 Puncture Site pCO2 pO2 HCO3 ABG pH ABG Total CO2 ABG O2 Saturation ABG Base Excess Dusty Test ABG Potassium VBG pH VBG pCO2 VBG HCO3 VBG Total CO2 VBG O2 Sat (Calc) VBG Base Excess VBG Potassium A-a O2 Difference Respiratory Index Sodium Chloride Glucose Lactate Liter Flow FiO2 Crit Value Called To Crit Value Called By Crit Value Read Back Blood Gas Notified Time Potassium Carbon Dioxide Anion Gap BUN Creatinine Est GFR ( Amer) Est GFR (Non-Af Amer) POC Glucose (mg/dL) Random Glucose Hemoglobin A1c Serum Osmolality Calcium Phosphorus Magnesium Total Bilirubin AST ALT Alkaline Phosphatase Total Creatine Kinase CK-MB (Mass) Troponin I Total Protein Albumin Globulin Albumin/Globulin Ratio TSH 3rd Generation Arterial Blood Potassium Venous Blood Potassium Urine Color Yellow Urine Clarity Hazy Urine pH 5.0 Ur Specific [place] 1.016 Urine Protein Negative Urine Glucose (UA) 3+ H Urine Ketones 1+ H Urine Blood 2+ H Urine Nitrate Negative Urine Bilirubin Negative Urine Urobilinogen Normal Ur Leukocyte Esterase Neg Urine WBC (Auto) 7 H Urine RBC (Auto) 1 Ur Squamous Epith Cells 1 Urine Bacteria Rare Urine Osmolality Ur Random Creatinine U Random Total Protein Ur Random Sodium Ur Random Potassium Ur Random Phosphorus Ur Random Glucose Ur Random Calcium Urine Magnesium Urine HCG, Qual Negative Urine Opiates Screen U Oxycodone Qual Urine Methadone Screen Ur Barbiturates Screen Ur Phencyclidine Scrn Ur Amphetamines Screen U Benzodiazepines Scrn U Oth Cocaine Metabols U Cannabinoids Screen B-Hydroxybutyrate 04/15/19 04/15/19 04/15/19 17:14 17:55 18:41 WBC RBC Hgb Hct MCV MCH MCHC RDW Plt Count MPV Neut % (Auto) Lymph % (Auto) [place] % (Auto) Eos % (Auto) Baso % (Auto) Neut # (Auto) Lymph # (Auto) [place] # (Auto) Eos # (Auto) Baso # (Auto) Neutrophils % (Manual) Band Neutrophils % Lymphocytes % (Manual) Monocytes % (Manual) Platelet Estimate PT INR APTT Puncture Site Rra pCO2 17 L* pO2 36 L* HCO3 0.8 L* ABG pH 6.89 L* ABG Total CO2 3.8 L ABG O2 Saturation 69.5 L ABG Base Excess -28.6 L Dusty Test Na ABG Potassium 2.5 L* VBG pH VBG pCO2 VBG HCO3 VBG Total CO2 VBG O2 Sat (Calc) VBG Base Excess VBG Potassium A-a O2 Difference 178.0 Respiratory Index 4.9 Sodium 147.0 146 Chloride 113.0 H 104 Glucose 538 H* D Lactate 4.1 H* Liter Flow 3.0 FiO2 33.0 Crit Value Called To Dr huma chamberlain Crit Value Called By Cirilo duncan Crit Value Read Back Y Blood Gas Notified Time 1801 Potassium 3.3 L Carbon Dioxide 8 L* D Anion Gap 37 H BUN 52 H Creatinine 3.5 H Est GFR ( Amer) 18 Est GFR (Non-Af Amer) 15 POC Glucose (mg/dL) Random Glucose 788 H* D Hemoglobin A1c Serum Osmolality Calcium 6.8 L Phosphorus 5.5 H Magnesium 2.0 Total Bilirubin 0.3 AST 22 ALT 20 Alkaline Phosphatase 80 Total Creatine Kinase CK-MB (Mass) Troponin I Total Protein 4.4 L Albumin 2.7 L D Globulin 1.8 L Albumin/Globulin Ratio 1.5 TSH 3rd Generation Arterial Blood Potassium 2.5 L* Venous Blood Potassium Urine Color Urine Clarity Urine pH Ur Specific [place] Urine Protein Urine Glucose (UA) Urine Ketones Urine Blood Urine Nitrate Urine Bilirubin Urine Urobilinogen Ur Leukocyte Esterase Urine WBC (Auto) Urine RBC (Auto) Ur Squamous Epith Cells Urine Bacteria Urine Osmolality Ur Random Creatinine U Random Total Protein Ur Random Sodium Ur Random Potassium Ur Random Phosphorus Ur Random Glucose Ur Random Calcium Urine Magnesium Urine HCG, Qual Urine Opiates Screen Negative U Oxycodone Qual Urine Methadone Screen Negative Ur Barbiturates Screen Negative Ur Phencyclidine Scrn Negative Ur Amphetamines Screen Negative U Benzodiazepines Scrn Negative U Oth Cocaine Metabols Negative U Cannabinoids Screen Negative B-Hydroxybutyrate 04/15/19 04/15/19 04/15/19 18:41 18:41 18:41 WBC RBC Hgb Hct MCV MCH MCHC RDW Plt Count MPV Neut % (Auto) Lymph % (Auto) [place] % (Auto) Eos % (Auto) Baso % (Auto) Neut # (Auto) Lymph # (Auto) [place] # (Auto) Eos # (Auto) Baso # (Auto) Neutrophils % (Manual) Band Neutrophils % Lymphocytes % (Manual) Monocytes % (Manual) Platelet Estimate PT INR APTT Puncture Site pCO2 pO2 HCO3 ABG pH ABG Total CO2 ABG O2 Saturation ABG Base Excess Dusty Test ABG Potassium VBG pH VBG pCO2 VBG HCO3 VBG Total CO2 VBG O2 Sat (Calc) VBG Base Excess VBG Potassium A-a O2 Difference Respiratory Index Sodium Chloride Glucose Lactate Liter Flow FiO2 Crit Value Called To Crit Value Called By Crit Value Read Back Blood Gas Notified Time Potassium Carbon Dioxide Anion Gap BUN Creatinine Est GFR ( Amer) Est GFR (Non-Af Amer) POC Glucose (mg/dL) Random Glucose Hemoglobin A1c 7.8 H Serum Osmolality 378 H Calcium Phosphorus Magnesium Total Bilirubin AST ALT Alkaline Phosphatase Total Creatine Kinase CK-MB (Mass) Troponin I Total Protein Albumin Globulin Albumin/Globulin Ratio TSH 3rd Generation Arterial Blood Potassium Venous Blood Potassium Urine Color Urine Clarity Urine pH Ur Specific [place] Urine Protein Urine Glucose (UA) Urine Ketones Urine Blood Urine Nitrate Urine Bilirubin Urine Urobilinogen Ur Leukocyte Esterase Urine WBC (Auto) Urine RBC (Auto) Ur Squamous Epith Cells Urine Bacteria Urine Osmolality 441 Ur Random Creatinine U Random Total Protein Ur Random Sodium Ur Random Potassium Ur Random Phosphorus Ur Random Glucose Ur Random Calcium Urine Magnesium Urine HCG, Qual Urine Opiates Screen U Oxycodone Qual Urine Methadone Screen Ur Barbiturates Screen Ur Phencyclidine Scrn Ur Amphetamines Screen U Benzodiazepines Scrn U Oth Cocaine Metabols U Cannabinoids Screen B-Hydroxybutyrate 04/15/19 04/15/19 04/15/19 20:20 20:24 20:24 WBC 37.7 H* RBC 3.43 L Hgb 10.4 L Hct 31.3 L MCV 91.5 D MCH 30.3 MCHC 33.1 RDW 13.6 Plt Count 355 MPV 7.6 Neut % (Auto) 89.5 H Lymph % (Auto) 7.6 L [place] % (Auto) 2.1 Eos % (Auto) 0.5 Baso % (Auto) 0.3 Neut # (Auto) 33.8 H Lymph # (Auto) 2.9 [place] # (Auto) 0.8 Eos # (Auto) 0.2 Baso # (Auto) 0.1 Neutrophils % (Manual) 89 H Band Neutrophils % 5 H Lymphocytes % (Manual) 4 L Monocytes % (Manual) 2 Platelet Estimate Normal PT INR APTT Puncture Site pCO2 pO2 40 HCO3 ABG pH ABG Total CO2 ABG O2 Saturation ABG Base Excess Dusty Test ABG Potassium VBG pH 7.22 L VBG pCO2 24 L VBG HCO3 11.4 VBG Total CO2 10.5 L VBG O2 Sat (Calc) 82.7 H VBG Base Excess -16.1 L VBG Potassium 3.0 L A-a O2 Difference Respiratory Index Sodium 149.0 H 147 Chloride 109.0 H 107 Glucose 556 H* Lactate 2.8 H Liter Flow FiO2 35.0 Crit Value Called To [facility] hermosillo Crit Value Called By Cirilo duncan Crit Value Read Back Y Blood Gas Notified Time 2026 Potassium 3.3 L Carbon Dioxide 10 L* D Anion Gap 34 H BUN 49 H Creatinine 3.1 H Est GFR ( Amer) 21 Est GFR (Non-Af Amer) 17 POC Glucose (mg/dL) Random Glucose 645 H* Hemoglobin A1c Serum Osmolality Calcium 6.8 L Phosphorus 2.6 Magnesium 2.0 Total Bilirubin 0.3 AST 25 ALT 23 Alkaline Phosphatase 85 Total Creatine Kinase CK-MB (Mass) Troponin I Total Protein 4.8 L Albumin 3.0 L Globulin 1.8 L Albumin/Globulin Ratio 1.7 TSH 3rd Generation 0.43 L Arterial Blood Potassium Venous Blood Potassium 3.0 L Urine Color Urine Clarity Urine pH Ur Specific [place] Urine Protein Urine Glucose (UA) Urine Ketones Urine Blood Urine Nitrate Urine Bilirubin Urine Urobilinogen Ur Leukocyte Esterase Urine WBC (Auto) Urine RBC (Auto) Ur Squamous Epith Cells Urine Bacteria Urine Osmolality Ur Random Creatinine U Random Total Protein Ur Random Sodium Ur Random Potassium Ur Random Phosphorus Ur Random Glucose Ur Random Calcium Urine Magnesium Urine HCG, Qual Urine Opiates Screen U Oxycodone Qual Urine Methadone Screen Ur Barbiturates Screen Ur Phencyclidine Scrn Ur Amphetamines Screen U Benzodiazepines Scrn U Oth Cocaine Metabols U Cannabinoids Screen B-Hydroxybutyrate 12.3 H 04/15/19 04/15/19 04/15/19 22:25 22:30 22:30 WBC 33.2 H RBC 3.39 L Hgb 10.2 L Hct 30.2 L MCV 89.0 D MCH 30.0 MCHC 33.7 RDW 13.7 Plt Count 340 MPV 7.7 Neut % (Auto) 91.9 H Lymph % (Auto) 4.9 L [place] % (Auto) 2.7 Eos % (Auto) 0.3 Baso % (Auto) 0.2 Neut # (Auto) 30.5 H Lymph # (Auto) 1.6 [place] # (Auto) 0.9 H Eos # (Auto) 0.1 Baso # (Auto) 0.1 Neutrophils % (Manual) Band Neutrophils % Lymphocytes % (Manual) Monocytes % (Manual) Platelet Estimate PT INR APTT Puncture Site pCO2 pO2 55 HCO3 ABG pH ABG Total CO2 ABG O2 Saturation ABG Base Excess Dusty Test ABG Potassium VBG pH 7.36 VBG pCO2 23 L VBG HCO3 16.5 VBG Total CO2 13.7 L VBG O2 Sat (Calc) 94.0 H VBG Base Excess -10.4 L VBG Potassium 2.6 L A-a O2 Difference Respiratory Index Sodium 150.0 H 148 Chloride 114.0 H 110 H Glucose 493 H* Lactate 2.2 H Liter Flow FiO2 33.0 Crit Value Called To [facility] Crit Value Called By Cirilo duncan Crit Value Read Back Y Blood Gas Notified Time 2230 Potassium 2.9 L Carbon Dioxide 14 L Anion Gap 27 H BUN 47 H Creatinine 2.8 H Est GFR ( Amer) 23 Est GFR (Non-Af Amer) 19 POC Glucose (mg/dL) Random Glucose 491 H* D Hemoglobin A1c Serum Osmolality Calcium 7.3 L Phosphorus 0.9 L* Magnesium 2.1 Total Bilirubin 0.3 AST 28 ALT 24 Alkaline Phosphatase 81 Total Creatine Kinase CK-MB (Mass) Troponin I Total Protein 4.9 L Albumin 2.9 L Globulin 2.0 L Albumin/Globulin Ratio 1.5 TSH 3rd Generation Arterial Blood Potassium Venous Blood Potassium 2.6 L Urine Color Urine Clarity Urine pH Ur Specific [place] Urine Protein Urine Glucose (UA) Urine Ketones Urine Blood Urine Nitrate Urine Bilirubin Urine Urobilinogen Ur Leukocyte Esterase Urine WBC (Auto) Urine RBC (Auto) Ur Squamous Epith Cells Urine Bacteria Urine Osmolality Ur Random Creatinine U Random Total Protein Ur Random Sodium Ur Random Potassium Ur Random Phosphorus Ur Random Glucose Ur Random Calcium Urine Magnesium Urine HCG, Qual Urine Opiates Screen U Oxycodone Qual Urine Methadone Screen Ur Barbiturates Screen Ur Phencyclidine Scrn Ur Amphetamines Screen U Benzodiazepines Scrn U Oth Cocaine Metabols U Cannabinoids Screen B-Hydroxybutyrate 04/15/19 04/16/19 04/16/19 22:30 02:50 02:50 WBC RBC Hgb Hct MCV MCH MCHC RDW Plt Count MPV Neut % (Auto) Lymph % (Auto) [place] % (Auto) Eos % (Auto) Baso % (Auto) Neut # (Auto) Lymph # (Auto) [place] # (Auto) Eos # (Auto) Baso # (Auto) Neutrophils % (Manual) Band Neutrophils % Lymphocytes % (Manual) Monocytes % (Manual) Platelet Estimate PT INR APTT Puncture Site pCO2 pO2 HCO3 ABG pH ABG Total CO2 ABG O2 Saturation ABG Base Excess Dusty Test ABG Potassium VBG pH VBG pCO2 VBG HCO3 VBG Total CO2 VBG O2 Sat (Calc) VBG Base Excess VBG Potassium A-a O2 Difference Respiratory Index Sodium Chloride Glucose Lactate Liter Flow FiO2 Crit Value Called To Crit Value Called By Crit Value Read Back Blood Gas Notified Time Potassium Carbon Dioxide Anion Gap BUN Creatinine Est GFR ( Amer) Est GFR (Non-Af Amer) POC Glucose (mg/dL) Random Glucose Hemoglobin A1c Serum Osmolality 360 H Calcium Phosphorus Magnesium Total Bilirubin AST ALT Alkaline Phosphatase Total Creatine Kinase CK-MB (Mass) Troponin I Total Protein Albumin Globulin Albumin/Globulin Ratio TSH 3rd Generation Arterial Blood Potassium Venous Blood Potassium Urine Color Urine Clarity Urine pH Ur Specific [place] Urine Protein Urine Glucose (UA) Urine Ketones Urine Blood Urine Nitrate Urine Bilirubin Urine Urobilinogen Ur Leukocyte Esterase Urine WBC (Auto) Urine RBC (Auto) Ur Squamous Epith Cells Urine Bacteria Urine Osmolality 496 Ur Random Creatinine 32 U Random Total Protein 25.0 H Ur Random Sodium 69 Ur Random Potassium 16.1 Ur Random Phosphorus 10.1 Ur Random Glucose 2354 Ur Random Calcium 3.4 Urine Magnesium < 1.2 Urine HCG, Qual Urine Opiates Screen U Oxycodone Qual Positive H Urine Methadone Screen Ur Barbiturates Screen Ur Phencyclidine Scrn Ur Amphetamines Screen U Benzodiazepines Scrn U Oth Cocaine Metabols U Cannabinoids Screen B-Hydroxybutyrate 04/16/19 04/16/19 02:50 04:06 WBC 26.7 H RBC 3.22 L Hgb 9.8 L Hct 28.1 L MCV 87.3 MCH 30.3 MCHC 34.7 RDW 13.5 Plt Count 307 MPV 8.0 Neut % (Auto) 93.6 H Lymph % (Auto) 3.0 L [place] % (Auto) 3.2 Eos % (Auto) 0.1 Baso % (Auto) 0.1 Neut # (Auto) 25.0 H Lymph # (Auto) 0.8 L [place] # (Auto) 0.9 H Eos # (Auto) 0.0 Baso # (Auto) 0.0 Neutrophils % (Manual) Band Neutrophils % Lymphocytes % (Manual) Monocytes % (Manual) Platelet Estimate PT INR APTT Puncture Site pCO2 pO2 HCO3 ABG pH ABG Total CO2 ABG O2 Saturation ABG Base Excess Dusty Test ABG Potassium VBG pH VBG pCO2 VBG HCO3 VBG Total CO2 VBG O2 Sat (Calc) VBG Base Excess VBG Potassium A-a O2 Difference Respiratory Index Sodium 149 H Chloride 114 H Glucose Lactate Liter Flow FiO2 Crit Value Called To Crit Value Called By Crit Value Read Back Blood Gas Notified Time Potassium 3.6 Carbon Dioxide 22 Anion Gap 17 BUN 44 H Creatinine 1.9 H Est GFR ( Amer) 36 Est GFR (Non-Af Amer) 30 POC Glucose (mg/dL) Random Glucose 316 H D Hemoglobin A1c Serum Osmolality Calcium 7.2 L Phosphorus 1.9 L Magnesium 1.9 Total Bilirubin 0.2 AST 27 ALT 30 Alkaline Phosphatase 79 Total Creatine Kinase CK-MB (Mass) Troponin I Total Protein 4.9 L Albumin 2.9 L Globulin 2.1 L Albumin/Globulin Ratio 1.4 TSH 3rd Generation Arterial Blood Potassium Venous Blood Potassium Urine Color Urine Clarity Urine pH Ur Specific [place] Urine Protein Urine Glucose (UA) Urine Ketones Urine Blood Urine Nitrate Urine Bilirubin Urine Urobilinogen Ur Leukocyte Esterase Urine WBC (Auto) Urine RBC (Auto) Ur Squamous Epith Cells Urine Bacteria Urine Osmolality Ur Random Creatinine U Random Total Protein Ur Random Sodium Ur Random Potassium Ur Random Phosphorus Ur Random Glucose Ur Random Calcium Urine Magnesium Urine HCG, Qual Urine Opiates Screen U Oxycodone Qual Urine Methadone Screen Ur Barbiturates Screen Ur Phencyclidine Scrn Ur Amphetamines Screen U Benzodiazepines Scrn U Oth Cocaine Metabols U Cannabinoids Screen B-Hydroxybutyrate
[2019-04-16] MEDS ORDERED: Magnesium Sulfate 1 gm in D5W 1 GM/100 ML BAG IVPB ONE (06:07)
[2019-04-16] MEDS ORDERED: Potassium Chloride 40 MEQ in Sodium Chloride 0.45% 1,000 ML IV ONE (07:00)
[2019-04-16 07:15] LABS: ALB/GLOB RATIO 1.6 (1.0-2.1); ALBUMIN 2.9 g/dL (3.5-5.0); CALCIUM 6.9 mg/dl (8.6-10.4)
[2019-04-16 07:54] LABS: BASO % 0.1 % (0.0-2.0); HEMOGLOBIN 9.7 g/dL (11.0-16.0); LYMPH % 4.6 % (20.0-40.0); MEAN CELL VOLUME 87.4 fL (81.0-99.0); MEAN CORPUSCULAR HEMOGLOBIN 30.5 pg (27.0-31.0); MEAN CORPUSCULAR HGB CONC 34.9 g/dL (33.0-37.0); MEAN PLATELET VOLUME 8.2 fL (7.2-11.7); MONO % 4.5 % (0.0-10.0); NEUT # 20.4 K/uL (1.8-7.0); NEUT % 90.8 % (50.0-75.0); NRBC % 0.2 % (0.0-2.0); RBC 3.17 Mil/uL (3.80-5.20); RED CELL DISTRIBUTION WIDTH 13.7 % (11.5-14.5); WHITE BLOOD COUNT 22.5 K/uL (4.8-10.8)
--- NOTE | 2019-04-16 08:31 | CP.PCM.CON ---
History of Present Illness - History of Present Illness History of Present Illness: renal consult note hpi 38yo F with PMH DM type 1 brought in by EMS to ED for unresponsiveness. Patient was found with multiple pill bottles and given narcan x2 in the field. Glucose in the field was >600. Patient was given narcan x2, NS x3 bags, Bicarb 50meq x5 in ED. Patient also given 5ml 0.1 epi, became awake but still not answering questions or following commands. SxH: L facial reconstructions, exlap, tonsillectomy FamH: father CA, mother HTN SocH: no tobacco use. substance use, unknown specific type Allergies: hydrocodone Meds: as per EMR vitals and labs reviewed Past Patient History - Infectious Disease Hx of Infectious Diseases: None - Past Medical History & Family History Past Medical History?: Yes - Past Social History Smoking Status: Never Smoked - CARDIAC Hx Cardiac Disorders: No - PULMONARY Hx Respiratory Disorders: No - NEUROLOGICAL Hx Neurological Disorder: No - HEENT Hx HEENT Problems: No - RENAL Hx Chronic Kidney Disease: No - ENDOCRINE/METABOLIC Hx Endocrine Disorders: Yes Hx Diabetes Mellitus Type 1: Yes - HEMATOLOGICAL/ONCOLOGICAL Hx Blood Disorders: No - INTEGUMENTARY Hx Dermatological Problems: No - MUSCULOSKELETAL/RHEUMATOLOGICAL Hx Musculoskeletal Disorders: Yes Other/Comment: LYME DISEASE - GASTROINTESTINAL Hx Gastrointestinal Disorders: No - GENITOURINARY/GYNECOLOGICAL Hx Genitourinary Disorders: No - PSYCHIATRIC Hx Substance Use: No - SURGICAL HISTORY Hx Cholecystectomy: Yes Hx Tonsillectomy: Yes - ANESTHESIA Hx Anesthesia: Yes Hx Anesthesia Reactions: No Hx Malignant Hyperthermia: No Meds Allergies/Adverse Reactions: Allergies Allergy/AdvReac Type Severity Reaction Status Date / Time hydrocodone Allergy ITCHING Verified 04/01/17 10:02 - Medications Medications: Current Medications Heparin Sodium (Porcine) (Heparin) 5,000 units SC Q12H COSME Last Admin: 04/16/19 06:24 Dose: 5,000 units Doxycycline Hyclate 100 mg/ (Sodium Chloride) 100 mls @ 100 mls/hr IVPB Q12H S ; Protocol Last Admin: 04/16/19 06:23 Dose: 100 mls/hr Meropen[place] 500 mg/ Sodium (Chloride) 100 mls @ 100 mls/hr IVPB Q8H COSME; Protocol Last Admin: 04/16/19 04:02 Dose: 100 mls/hr Insulin Human Regular 100 unit (/ Sodium Chloride) 100 mls @ 4 mls/hr IV .Q24H STA; Protocol Stop: 04/16/19 15:44 Last Titration: 04/16/19 07:30 Dose: 3 units/hr, 3 mls/hr Potassium Chloride 40 meq/ (Sodium Chloride) 1,020 mls @ 200 mls/hr IV .Q5H6M ONE Stop: 04/16/19 12:05 Last Admin: 04/16/19 06:25 Dose: 200 mls/hr Pantoprazole Sodium (Protonix Inj) 40 mg IVP Q12H COSME Last Admin: 04/16/19 06:24 Dose: 40 mg Results - Vital Signs Recent Vital Signs: Last Vital Signs Temp 98.9 F 04/16/19 04:00 Pulse 126 H 04/16/19 06:01 Resp 19 04/16/19 06:01 BP 105/49 L 04/16/19 06:01 Pulse Ox 98 04/16/19 06:01 - Labs Result Diagrams: 04/16/19 06:58 04/16/19 06:58 Labs: Laboratory Results - last 24 hr 04/15/19 04/15/19 04/15/19 15:20 15:25 15:41 WBC RBC Hgb Hct MCV MCH MCHC RDW Plt Count MPV Neut % (Auto) Lymph % (Auto) [place] % (Auto) Eos % (Auto) Baso % (Auto) Neut # (Auto) Lymph # (Auto) [place] # (Auto) Eos # (Auto) Baso # (Auto) Neutrophils % (Manual) Band Neutrophils % Lymphocytes % (Manual) Monocytes % (Manual) Platelet Estimate PT INR APTT Puncture Site Rra pCO2 11 L* pO2 229 H HCO3 0.7 L* ABG pH 6.83 L* ABG Total CO2 2.1 L ABG O2 Saturation 98.5 H ABG Base Excess -31.1 L Dusty Test Pos ABG Potassium 5.6 H VBG pH VBG pCO2 VBG HCO3 VBG Total CO2 VBG O2 Sat (Calc) VBG Base Excess VBG Potassium A-a O2 Difference 470.0 Respiratory Index 2.1 Sodium 132.0 129 L Chloride 89.0 L 84 L Glucose > 750 H* Lactate 3.3 H Liter Flow 15.0 FiO2 100.0 Crit Value Called To Dr wang Crit Value Called By [facility] Crit Value Read Back Y Blood Gas Notified Time 1533 Potassium 6.5 H* D Carbon Dioxide < 5 L* D Anion Gap 47 H BUN 60 H Creatinine 4.6 H Est GFR ( Amer) 13 Est GFR (Non-Af Amer) 11 POC Glucose (mg/dL) > 500 H* Random Glucose 1359 H* Hemoglobin A1c Serum Osmolality Calcium 8.0 L Phosphorus 13.2 H Magnesium 2.7 H Total Bilirubin 0.3 AST 20 ALT 20 Alkaline Phosphatase 121 Total Creatine Kinase 88 CK-MB (Mass) 4.91 H Troponin I < 0.0120 Total Protein 5.8 L Albumin 4.1 Globulin 1.7 L Albumin/Globulin Ratio 2.4 H TSH 3rd Generation Arterial Blood Potassium 5.6 H Venous Blood Potassium Urine Color Urine Clarity Urine pH Ur Specific [place] Urine Protein Urine Glucose (UA) Urine Ketones Urine Blood Urine Nitrate Urine Bilirubin Urine Urobilinogen Ur Leukocyte Esterase Urine WBC (Auto) Urine RBC (Auto) Ur Squamous Epith Cells Urine Bacteria Urine Osmolality Ur Random Creatinine U Random Total Protein Ur Random Sodium Ur Random Potassium Ur Random Phosphorus Ur Random Glucose Ur Random Calcium Urine Magnesium Urine HCG, Qual Urine Opiates Screen U Oxycodone Qual Urine Methadone Screen Ur Barbiturates Screen Ur Phencyclidine Scrn Ur Amphetamines Screen U Benzodiazepines Scrn U Oth Cocaine Metabols U Cannabinoids Screen B-Hydroxybutyrate 16.8 H 04/15/19 04/15/19 04/15/19 15:41 15:41 17:13 WBC 31.3 H RBC 3.76 L Hgb 11.4 D Hct 41.9 MCV 111.6 H D MCH 30.4 MCHC 27.2 L RDW 15.6 H Plt Count 442 H MPV 9.4 Neut % (Auto) 90.7 H Lymph % (Auto) 4.2 L [place] % (Auto) 4.7 Eos % (Auto) 0.2 Baso % (Auto) 0.2 Neut # (Auto) 28.4 H Lymph # (Auto) 1.3 [place] # (Auto) 1.5 H Eos # (Auto) 0.0 Baso # (Auto) 0.1 Neutrophils % (Manual) 83 H Band Neutrophils % 5 H Lymphocytes % (Manual) 6 L Monocytes % (Manual) 6 Platelet Estimate Slightly increased H PT 10.3 INR 0.9 APTT 25.2 Puncture Site pCO2 pO2 HCO3 ABG pH ABG Total CO2 ABG O2 Saturation ABG Base Excess Dusty Test ABG Potassium VBG pH VBG pCO2 VBG HCO3 VBG Total CO2 VBG O2 Sat (Calc) VBG Base Excess VBG Potassium A-a O2 Difference Respiratory Index Sodium Chloride Glucose Lactate Liter Flow FiO2 Crit Value Called To Crit Value Called By Crit Value Read Back Blood Gas Notified Time Potassium Carbon Dioxide Anion Gap BUN Creatinine Est GFR ( Amer) Est GFR (Non-Af Amer) POC Glucose (mg/dL) > 500 H* Random Glucose Hemoglobin A1c Serum Osmolality Calcium Phosphorus Magnesium Total Bilirubin AST ALT Alkaline Phosphatase Total Creatine Kinase CK-MB (Mass) Troponin I Total Protein Albumin Globulin Albumin/Globulin Ratio TSH 3rd Generation Arterial Blood Potassium Venous Blood Potassium Urine Color Urine Clarity Urine pH Ur Specific [place] Urine Protein Urine Glucose (UA) Urine Ketones Urine Blood Urine Nitrate Urine Bilirubin Urine Urobilinogen Ur Leukocyte Esterase Urine WBC (Auto) Urine RBC (Auto) Ur Squamous Epith Cells Urine Bacteria Urine Osmolality Ur Random Creatinine U Random Total Protein Ur Random Sodium Ur Random Potassium Ur Random Phosphorus Ur Random Glucose Ur Random Calcium Urine Magnesium Urine HCG, Qual Urine Opiates Screen U Oxycodone Qual Urine Methadone Screen Ur Barbiturates Screen Ur Phencyclidine Scrn Ur Amphetamines Screen U Benzodiazepines Scrn U Oth Cocaine Metabols U Cannabinoids Screen B-Hydroxybutyrate 04/15/19 04/15/19 04/15/19 17:14 17:14 17:55 WBC RBC Hgb Hct MCV MCH MCHC RDW Plt Count MPV Neut % (Auto) Lymph % (Auto) [place] % (Auto) Eos % (Auto) Baso % (Auto) Neut # (Auto) Lymph # (Auto) [place] # (Auto) Eos # (Auto) Baso # (Auto) Neutrophils % (Manual) Band Neutrophils % Lymphocytes % (Manual) Monocytes % (Manual) Platelet Estimate PT INR APTT Puncture Site Rra pCO2 17 L* pO2 36 L* HCO3 0.8 L* ABG pH 6.89 L* ABG Total CO2 3.8 L ABG O2 Saturation 69.5 L ABG Base Excess -28.6 L Dusty Test Na ABG Potassium 2.5 L* VBG pH VBG pCO2 VBG HCO3 VBG Total CO2 VBG O2 Sat (Calc) VBG Base Excess VBG Potassium A-a O2 Difference 178.0 Respiratory Index 4.9 Sodium 147.0 Chloride 113.0 H Glucose 538 H* D Lactate 4.1 H* Liter Flow 3.0 FiO2 33.0 Crit Value Called To Dr huma chamberlain Crit Value Called By Cirilo duncan Crit Value Read Back Y Blood Gas Notified Time 1801 Potassium Carbon Dioxide Anion Gap BUN Creatinine Est GFR ( Amer) Est GFR (Non-Af Amer) POC Glucose (mg/dL) Random Glucose Hemoglobin A1c Serum Osmolality Calcium Phosphorus Magnesium Total Bilirubin AST ALT Alkaline Phosphatase Total Creatine Kinase CK-MB (Mass) Troponin I Total Protein Albumin Globulin Albumin/Globulin Ratio TSH 3rd Generation Arterial Blood Potassium 2.5 L* Venous Blood Potassium Urine Color Yellow Urine Clarity Hazy Urine pH 5.0 Ur Specific [place] 1.016 Urine Protein Negative Urine Glucose (UA) 3+ H Urine Ketones 1+ H Urine Blood 2+ H Urine Nitrate Negative Urine Bilirubin Negative Urine Urobilinogen Normal Ur Leukocyte Esterase Neg Urine WBC (Auto) 7 H Urine RBC (Auto) 1 Ur Squamous Epith Cells 1 Urine Bacteria Rare Urine Osmolality Ur Random Creatinine U Random Total Protein Ur Random Sodium Ur Random Potassium Ur Random Phosphorus Ur Random Glucose Ur Random Calcium Urine Magnesium Urine HCG, Qual Negative Urine Opiates Screen Negative U Oxycodone Qual Urine Methadone Screen Negative Ur Barbiturates Screen Negative Ur Phencyclidine Scrn Negative Ur Amphetamines Screen Negative U Benzodiazepines Scrn Negative U Oth Cocaine Metabols Negative U Cannabinoids Screen Negative B-Hydroxybutyrate 04/15/19 04/15/19 04/15/19 18:04 18:41 18:41 WBC RBC Hgb Hct MCV MCH MCHC RDW Plt Count MPV Neut % (Auto) Lymph % (Auto) [place] % (Auto) Eos % (Auto) Baso % (Auto) Neut # (Auto) Lymph # (Auto) [place] # (Auto) Eos # (Auto) Baso # (Auto) Neutrophils % (Manual) Band Neutrophils % Lymphocytes % (Manual) Monocytes % (Manual) Platelet Estimate PT INR APTT Puncture Site pCO2 pO2 HCO3 ABG pH ABG Total CO2 ABG O2 Saturation ABG Base Excess Dusty Test ABG Potassium VBG pH VBG pCO2 VBG HCO3 VBG Total CO2 VBG O2 Sat (Calc) VBG Base Excess VBG Potassium A-a O2 Difference Respiratory Index Sodium 146 Chloride 104 Glucose Lactate Liter Flow FiO2 Crit Value Called To Crit Value Called By Crit Value Read Back Blood Gas Notified Time Potassium 3.3 L Carbon Dioxide 8 L* D Anion Gap 37 H BUN 52 H Creatinine 3.5 H Est GFR ( Amer) 18 Est GFR (Non-Af Amer) 15 POC Glucose (mg/dL) > 500 H* Random Glucose 788 H* D Hemoglobin A1c Serum Osmolality 378 H Calcium 6.8 L Phosphorus 5.5 H Magnesium 2.0 Total Bilirubin 0.3 AST 22 ALT 20 Alkaline Phosphatase 80 Total Creatine Kinase CK-MB (Mass) Troponin I Total Protein 4.4 L Albumin 2.7 L D Globulin 1.8 L Albumin/Globulin Ratio 1.5 TSH 3rd Generation Arterial Blood Potassium Venous Blood Potassium Urine Color Urine Clarity Urine pH Ur Specific [place] Urine Protein Urine Glucose (UA) Urine Ketones Urine Blood Urine Nitrate Urine Bilirubin Urine Urobilinogen Ur Leukocyte Esterase Urine WBC (Auto) Urine RBC (Auto) Ur Squamous Epith Cells Urine Bacteria Urine Osmolality Ur Random Creatinine U Random Total Protein Ur Random Sodium Ur Random Potassium Ur Random Phosphorus Ur Random Glucose Ur Random Calcium Urine Magnesium Urine HCG, Qual Urine Opiates Screen U Oxycodone Qual Urine Methadone Screen Ur Barbiturates Screen Ur Phencyclidine Scrn Ur Amphetamines Screen U Benzodiazepines Scrn U Oth Cocaine Metabols U Cannabinoids Screen B-Hydroxybutyrate 04/15/19 04/15/19 04/15/19 18:41 18:41 19:03 WBC RBC Hgb Hct MCV MCH MCHC RDW Plt Count MPV Neut % (Auto) Lymph % (Auto) [place] % (Auto) Eos % (Auto) Baso % (Auto) Neut # (Auto) Lymph # (Auto) [place] # (Auto) Eos # (Auto) Baso # (Auto) Neutrophils % (Manual) Band Neutrophils % Lymphocytes % (Manual) Monocytes % (Manual) Platelet Estimate PT INR APTT Puncture Site pCO2 pO2 HCO3 ABG pH ABG Total CO2 ABG O2 Saturation ABG Base Excess Dusty Test ABG Potassium VBG pH VBG pCO2 VBG HCO3 VBG Total CO2 VBG O2 Sat (Calc) VBG Base Excess VBG Potassium A-a O2 Difference Respiratory Index Sodium Chloride Glucose Lactate Liter Flow FiO2 Crit Value Called To Crit Value Called By Crit Value Read Back Blood Gas Notified Time Potassium Carbon Dioxide Anion Gap BUN Creatinine Est GFR ( Amer) Est GFR (Non-Af Amer) POC Glucose (mg/dL) > 500 H* Random Glucose Hemoglobin A1c 7.8 H Serum Osmolality Calcium Phosphorus Magnesium Total Bilirubin AST ALT Alkaline Phosphatase Total Creatine Kinase CK-MB (Mass) Troponin I Total Protein Albumin Globulin Albumin/Globulin Ratio TSH 3rd Generation Arterial Blood Potassium Venous Blood Potassium Urine Color Urine Clarity Urine pH Ur Specific [place] Urine Protein Urine Glucose (UA) Urine Ketones Urine Blood Urine Nitrate Urine Bilirubin Urine Urobilinogen Ur Leukocyte Esterase Urine WBC (Auto) Urine RBC (Auto) Ur Squamous Epith Cells Urine Bacteria Urine Osmolality 441 Ur Random Creatinine U Random Total Protein Ur Random Sodium Ur Random Potassium Ur Random Phosphorus Ur Random Glucose Ur Random Calcium Urine Magnesium Urine HCG, Qual Urine Opiates Screen U Oxycodone Qual Urine Methadone Screen Ur Barbiturates Screen Ur Phencyclidine Scrn Ur Amphetamines Screen U Benzodiazepines Scrn U Oth Cocaine Metabols U Cannabinoids Screen B-Hydroxybutyrate 04/15/19 04/15/19 04/15/19 20:02 20:20 20:24 WBC RBC Hgb Hct MCV MCH MCHC RDW Plt Count MPV Neut % (Auto) Lymph % (Auto) [place] % (Auto) Eos % (Auto) Baso % (Auto) Neut # (Auto) Lymph # (Auto) [place] # (Auto) Eos # (Auto) Baso # (Auto) Neutrophils % (Manual) Band Neutrophils % Lymphocytes % (Manual) Monocytes % (Manual) Platelet Estimate PT INR APTT Puncture Site pCO2 pO2 40 HCO3 ABG pH ABG Total CO2 ABG O2 Saturation ABG Base Excess Dusty Test ABG Potassium VBG pH 7.22 L VBG pCO2 24 L VBG HCO3 11.4 VBG Total CO2 10.5 L VBG O2 Sat (Calc) 82.7 H VBG Base Excess -16.1 L VBG Potassium 3.0 L A-a O2 Difference Respiratory Index Sodium 149.0 H 147 Chloride 109.0 H 107 Glucose 556 H* Lactate 2.8 H Liter Flow FiO2 35.0 Crit Value Called To [facility] him[facility] hermosillo Crit Value Called By Cirilo duncan Crit Value Read Back Y Blood Gas Notified Time 2026 Potassium 3.3 L Carbon Dioxide 10 L* D Anion Gap 34 H BUN 49 H Creatinine 3.1 H Est GFR ( Amer) 21 Est GFR (Non-Af Amer) 17 POC Glucose (mg/dL) > 500 H* Random Glucose 645 H* Hemoglobin A1c Serum Osmolality Calcium 6.8 L Phosphorus 2.6 Magnesium 2.0 Total Bilirubin 0.3 AST 25 ALT 23 Alkaline Phosphatase 85 Total Creatine Kinase CK-MB (Mass) Troponin I Total Protein 4.8 L Albumin 3.0 L Globulin 1.8 L Albumin/Globulin Ratio 1.7 TSH 3rd Generation 0.43 L Arterial Blood Potassium Venous Blood Potassium 3.0 L Urine Color Urine Clarity Urine pH Ur Specific [place] Urine Protein Urine Glucose (UA) Urine Ketones Urine Blood Urine Nitrate Urine Bilirubin Urine Urobilinogen Ur Leukocyte Esterase Urine WBC (Auto) Urine RBC (Auto) Ur Squamous Epith Cells Urine Bacteria Urine Osmolality Ur Random Creatinine U Random Total Protein Ur Random Sodium Ur Random Potassium Ur Random Phosphorus Ur Random Glucose Ur Random Calcium Urine Magnesium Urine HCG, Qual Urine Opiates Screen U Oxycodone Qual Urine Methadone Screen Ur Barbiturates Screen Ur Phencyclidine Scrn Ur Amphetamines Screen U Benzodiazepines Scrn U Oth Cocaine Metabols U Cannabinoids Screen B-Hydroxybutyrate 12.3 H 04/15/19 04/15/19 04/15/19 20:24 21:12 21:54 WBC 37.7 H* RBC 3.43 L Hgb 10.4 L Hct 31.3 L MCV 91.5 D MCH 30.3 MCHC 33.1 RDW 13.6 Plt Count 355 MPV 7.6 Neut % (Auto) 89.5 H Lymph % (Auto) 7.6 L [place] % (Auto) 2.1 Eos % (Auto) 0.5 Baso % (Auto) 0.3 Neut # (Auto) 33.8 H Lymph # (Auto) 2.9 [place] # (Auto) 0.8 Eos # (Auto) 0.2 Baso # (Auto) 0.1 Neutrophils % (Manual) 89 H Band Neutrophils % 5 H Lymphocytes % (Manual) 4 L Monocytes % (Manual) 2 Platelet Estimate Normal PT INR APTT Puncture Site pCO2 pO2 HCO3 ABG pH ABG Total CO2 ABG O2 Saturation ABG Base Excess Dusty Test ABG Potassium VBG pH VBG pCO2 VBG HCO3 VBG Total CO2 VBG O2 Sat (Calc) VBG Base Excess VBG Potassium A-a O2 Difference Respiratory Index Sodium Chloride Glucose Lactate Liter Flow FiO2 Crit Value Called To Crit Value Called By Crit Value Read Back Blood Gas Notified Time Potassium Carbon Dioxide Anion Gap BUN Creatinine Est GFR ( Amer) Est GFR (Non-Af Amer) POC Glucose (mg/dL) > 500 H* > 500 H* Random Glucose Hemoglobin A1c Serum Osmolality Calcium Phosphorus Magnesium Total Bilirubin AST ALT Alkaline Phosphatase Total Creatine Kinase CK-MB (Mass) Troponin I Total Protein Albumin Globulin Albumin/Globulin Ratio TSH 3rd Generation Arterial Blood Potassium Venous Blood Potassium Urine Color Urine Clarity Urine pH Ur Specific [place] Urine Protein Urine Glucose (UA) Urine Ketones Urine Blood Urine Nitrate Urine Bilirubin Urine Urobilinogen Ur Leukocyte Esterase Urine WBC (Auto) Urine RBC (Auto) Ur Squamous Epith Cells Urine Bacteria Urine Osmolality Ur Random Creatinine U Random Total Protein Ur Random Sodium Ur Random Potassium Ur Random Phosphorus Ur Random Glucose Ur Random Calcium Urine Magnesium Urine HCG, Qual Urine Opiates Screen U Oxycodone Qual Urine Methadone Screen Ur Barbiturates Screen Ur Phencyclidine Scrn Ur Amphetamines Screen U Benzodiazepines Scrn U Oth Cocaine Metabols U Cannabinoids Screen B-Hydroxybutyrate 04/15/19 04/15/19 04/15/19 22:25 22:30 22:30 WBC 33.2 H RBC 3.39 L Hgb 10.2 L Hct 30.2 L MCV 89.0 D MCH 30.0 MCHC 33.7 RDW 13.7 Plt Count 340 MPV 7.7 Neut % (Auto) 91.9 H Lymph % (Auto) 4.9 L [place] % (Auto) 2.7 Eos % (Auto) 0.3 Baso % (Auto) 0.2 Neut # (Auto) 30.5 H Lymph # (Auto) 1.6 [place] # (Auto) 0.9 H Eos # (Auto) 0.1 Baso # (Auto) 0.1 Neutrophils % (Manual) Band Neutrophils % Lymphocytes % (Manual) Monocytes % (Manual) Platelet Estimate PT INR APTT Puncture Site pCO2 pO2 55 HCO3 ABG pH ABG Total CO2 ABG O2 Saturation ABG Base Excess Dusty Test ABG Potassium VBG pH 7.36 VBG pCO2 23 L VBG HCO3 16.5 VBG Total CO2 13.7 L VBG O2 Sat (Calc) 94.0 H VBG Base Excess -10.4 L VBG Potassium 2.6 L A-a O2 Difference Respiratory Index Sodium 150.0 H 148 Chloride 114.0 H 110 H Glucose 493 H* Lactate 2.2 H Liter Flow FiO2 33.0 Crit Value Called To [facility] Crit Value Called By Cirilo rt Crit Value Read Back Y Blood Gas Notified Time 2230 Potassium 2.9 L Carbon Dioxide 14 L Anion Gap 27 H BUN 47 H Creatinine 2.8 H Est GFR ( Amer) 23 Est GFR (Non-Af Amer) 19 POC Glucose (mg/dL) Random Glucose 491 H* D Hemoglobin A1c Serum Osmolality Calcium 7.3 L Phosphorus 0.9 L* Magnesium 2.1 Total Bilirubin 0.3 AST 28 ALT 24 Alkaline Phosphatase 81 Total Creatine Kinase CK-MB (Mass) Troponin I Total Protein 4.9 L Albumin 2.9 L Globulin 2.0 L Albumin/Globulin Ratio 1.5 TSH 3rd Generation Arterial Blood Potassium Venous Blood Potassium 2.6 L Urine Color Urine Clarity Urine pH Ur Specific [place] Urine Protein Urine Glucose (UA) Urine Ketones Urine Blood Urine Nitrate Urine Bilirubin Urine Urobilinogen Ur Leukocyte Esterase Urine WBC (Auto) Urine RBC (Auto) Ur Squamous Epith Cells Urine Bacteria Urine Osmolality Ur Random Creatinine U Random Total Protein Ur Random Sodium Ur Random Potassium Ur Random Phosphorus Ur Random Glucose Ur Random Calcium Urine Magnesium Urine HCG, Qual Urine Opiates Screen U Oxycodone Qual Urine Methadone Screen Ur Barbiturates Screen Ur Phencyclidine Scrn Ur Amphetamines Screen U Benzodiazepines Scrn U Oth Cocaine Metabols U Cannabinoids Screen B-Hydroxybutyrate 04/15/19 04/16/19 04/16/19 22:30 00:02 01:03 WBC RBC Hgb Hct MCV MCH MCHC RDW Plt Count MPV Neut % (Auto) Lymph % (Auto) [place] % (Auto) Eos % (Auto) Baso % (Auto) Neut # (Auto) Lymph # (Auto) [place] # (Auto) Eos # (Auto) Baso # (Auto) Neutrophils % (Manual) Band Neutrophils % Lymphocytes % (Manual) Monocytes % (Manual) Platelet Estimate PT INR APTT Puncture Site pCO2 pO2 HCO3 ABG pH ABG Total CO2 ABG O2 Saturation ABG Base Excess Dusty Test ABG Potassium VBG pH VBG pCO2 VBG HCO3 VBG Total CO2 VBG O2 Sat (Calc) VBG Base Excess VBG Potassium A-a O2 Difference Respiratory Index Sodium Chloride Glucose Lactate Liter Flow FiO2 Crit Value Called To Crit Value Called By Crit Value Read Back Blood Gas Notified Time Potassium Carbon Dioxide Anion Gap BUN Creatinine Est GFR ( Amer) Est GFR (Non-Af Amer) POC Glucose (mg/dL) 451 H* 416 H* Random Glucose Hemoglobin A1c Serum Osmolality 360 H Calcium Phosphorus Magnesium Total Bilirubin AST ALT Alkaline Phosphatase Total Creatine Kinase CK-MB (Mass) Troponin I Total Protein Albumin Globulin Albumin/Globulin Ratio TSH 3rd Generation Arterial Blood Potassium Venous Blood Potassium Urine Color Urine Clarity Urine pH Ur Specific [place] Urine Protein Urine Glucose (UA) Urine Ketones Urine Blood Urine Nitrate Urine Bilirubin Urine Urobilinogen Ur Leukocyte Esterase Urine WBC (Auto) Urine RBC (Auto) Ur Squamous Epith Cells Urine Bacteria Urine Osmolality Ur Random Creatinine U Random Total Protein Ur Random Sodium Ur Random Potassium Ur Random Phosphorus Ur Random Glucose Ur Random Calcium Urine Magnesium Urine HCG, Qual Urine Opiates Screen U Oxycodone Qual Urine Methadone Screen Ur Barbiturates Screen Ur Phencyclidine Scrn Ur Amphetamines Screen U Benzodiazepines Scrn U Oth Cocaine Metabols U Cannabinoids Screen B-Hydroxybutyrate 04/16/19 04/16/19 04/16/19 01:59 02:50 02:50 WBC RBC Hgb Hct MCV MCH MCHC RDW Plt Count MPV Neut % (Auto) Lymph % (Auto) [place] % (Auto) Eos % (Auto) Baso % (Auto) Neut # (Auto) Lymph # (Auto) [place] # (Auto) Eos # (Auto) Baso # (Auto) Neutrophils % (Manual) Band Neutrophils % Lymphocytes % (Manual) Monocytes % (Manual) Platelet Estimate PT INR APTT Puncture Site pCO2 pO2 HCO3 ABG pH ABG Total CO2 ABG O2 Saturation ABG Base Excess Dusty Test ABG Potassium VBG pH VBG pCO2 VBG HCO3 VBG Total CO2 VBG O2 Sat (Calc) VBG Base Excess VBG Potassium A-a O2 Difference Respiratory Index Sodium Chloride Glucose Lactate Liter Flow FiO2 Crit Value Called To Crit Value Called By Crit Value Read Back Blood Gas Notified Time Potassium Carbon Dioxide Anion Gap BUN Creatinine Est GFR ( Amer) Est GFR (Non-Af Amer) POC Glucose (mg/dL) 352 H Random Glucose Hemoglobin A1c Serum Osmolality Calcium Phosphorus Magnesium Total Bilirubin AST ALT Alkaline Phosphatase Total Creatine Kinase CK-MB (Mass) Troponin I Total Protein Albumin Globulin Albumin/Globulin Ratio TSH 3rd Generation Arterial Blood Potassium Venous Blood Potassium Urine Color Urine Clarity Urine pH Ur Specific [place] Urine Protein Urine Glucose (UA) Urine Ketones Urine Blood Urine Nitrate Urine Bilirubin Urine Urobilinogen Ur Leukocyte Esterase Urine WBC (Auto) Urine RBC (Auto) Ur Squamous Epith Cells Urine Bacteria Urine Osmolality 496 Ur Random Creatinine 32 U Random Total Protein 25.0 H Ur Random Sodium 69 Ur Random Potassium 16.1 Ur Random Phosphorus 10.1 Ur Random Glucose 2354 Ur Random Calcium 3.4 Urine Magnesium < 1.2 Urine HCG, Qual Urine Opiates Screen U Oxycodone Qual Positive H Urine Methadone Screen Ur Barbiturates Screen Ur Phencyclidine Scrn Ur Amphetamines Screen U Benzodiazepines Scrn U Oth Cocaine Metabols U Cannabinoids Screen B-Hydroxybutyrate 04/16/19 04/16/19 04/16/19 02:50 03:11 04:06 WBC 26.7 H RBC 3.22 L Hgb 9.8 L Hct 28.1 L MCV 87.3 MCH 30.3 MCHC 34.7 RDW 13.5 Plt Count 307 MPV 8.0 Neut % (Auto) 93.6 H Lymph % (Auto) 3.0 L [place] % (Auto) 3.2 Eos % (Auto) 0.1 Baso % (Auto) 0.1 Neut # (Auto) 25.0 H Lymph # (Auto) 0.8 L [place] # (Auto) 0.9 H Eos # (Auto) 0.0 Baso # (Auto) 0.0 Neutrophils % (Manual) Band Neutrophils % Lymphocytes % (Manual) Monocytes % (Manual) Platelet Estimate PT INR APTT Puncture Site pCO2 pO2 HCO3 ABG pH ABG Total CO2 ABG O2 Saturation ABG Base Excess Dusty Test ABG Potassium VBG pH VBG pCO2 VBG HCO3 VBG Total CO2 VBG O2 Sat (Calc) VBG Base Excess VBG Potassium A-a O2 Difference Respiratory Index Sodium 149 H Chloride 114 H Glucose Lactate Liter Flow FiO2 Crit Value Called To Crit Value Called By Crit Value Read Back Blood Gas Notified Time Potassium 3.6 Carbon Dioxide 22 Anion Gap 17 BUN 44 H Creatinine 1.9 H Est GFR ( Amer) 36 Est GFR (Non-Af Amer) 30 POC Glucose (mg/dL) 336 H Random Glucose 316 H D Hemoglobin A1c Serum Osmolality Calcium 7.2 L Phosphorus 1.9 L Magnesium 1.9 Total Bilirubin 0.2 AST 27 ALT 30 Alkaline Phosphatase 79 Total Creatine Kinase CK-MB (Mass) Troponin I Total Protein 4.9 L Albumin 2.9 L Globulin 2.1 L Albumin/Globulin Ratio 1.4 TSH 3rd Generation Arterial Blood Potassium Venous Blood Potassium Urine Color Urine Clarity Urine pH Ur Specific [place] Urine Protein Urine Glucose (UA) Urine Ketones Urine Blood Urine Nitrate Urine Bilirubin Urine Urobilinogen Ur Leukocyte Esterase Urine WBC (Auto) Urine RBC (Auto) Ur Squamous Epith Cells Urine Bacteria Urine Osmolality Ur Random Creatinine U Random Total Protein Ur Random Sodium Ur Random Potassium Ur Random Phosphorus Ur Random Glucose Ur Random Calcium Urine Magnesium Urine HCG, Qual Urine Opiates Screen U Oxycodone Qual Urine Methadone Screen Ur Barbiturates Screen Ur Phencyclidine Scrn Ur Amphetamines Screen U Benzodiazepines Scrn U Oth Cocaine Metabols U Cannabinoids Screen B-Hydroxybutyrate 04/16/19 04/16/19 04/16/19 04:23 05:27 06:58 WBC 22.5 H RBC 3.17 L Hgb 9.7 L Hct 27.7 L MCV 87.4 MCH 30.5 MCHC 34.9 RDW 13.7 Plt Count 307 MPV 8.2 Neut % (Auto) 90.8 H Lymph % (Auto) 4.6 L [place] % (Auto) 4.5 Eos % (Auto) 0.0 Baso % (Auto) 0.1 Neut # (Auto) 20.4 H Lymph # (Auto) 1.0 [place] # (Auto) 1.0 H Eos # (Auto) 0.0 Baso # (Auto) 0.0 Neutrophils % (Manual) Band Neutrophils % Lymphocytes % (Manual) Monocytes % (Manual) Platelet Estimate PT INR APTT Puncture Site pCO2 pO2 HCO3 ABG pH ABG Total CO2 ABG O2 Saturation ABG Base Excess Dusty Test ABG Potassium VBG pH VBG pCO2 VBG HCO3 VBG Total CO2 VBG O2 Sat (Calc) VBG Base Excess VBG Potassium A-a O2 Difference Respiratory Index Sodium Chloride Glucose Lactate Liter Flow FiO2 Crit Value Called To Crit Value Called By Crit Value Read Back Blood Gas Notified Time Potassium Carbon Dioxide Anion Gap BUN Creatinine Est GFR ( Amer) Est GFR (Non-Af Amer) POC Glucose (mg/dL) 296 H 262 H Random Glucose Hemoglobin A1c Serum Osmolality Calcium Phosphorus Magnesium Total Bilirubin AST ALT Alkaline Phosphatase Total Creatine Kinase CK-MB (Mass) Troponin I Total Protein Albumin Globulin Albumin/Globulin Ratio TSH 3rd Generation Arterial Blood Potassium Venous Blood Potassium Urine Color Urine Clarity Urine pH Ur Specific [place] Urine Protein Urine Glucose (UA) Urine Ketones Urine Blood Urine Nitrate Urine Bilirubin Urine Urobilinogen Ur Leukocyte Esterase Urine WBC (Auto) Urine RBC (Auto) Ur Squamous Epith Cells Urine Bacteria Urine Osmolality Ur Random Creatinine U Random Total Protein Ur Random Sodium Ur Random Potassium Ur Random Phosphorus Ur Random Glucose Ur Random Calcium Urine Magnesium Urine HCG, Qual Urine Opiates Screen U Oxycodone Qual Urine Methadone Screen Ur Barbiturates Screen Ur Phencyclidine Scrn Ur Amphetamines Screen U Benzodiazepines Scrn U Oth Cocaine Metabols U Cannabinoids Screen B-Hydroxybutyrate 04/16/19 06:58 WBC RBC Hgb Hct MCV MCH MCHC RDW Plt Count MPV Neut % (Auto) Lymph % (Auto) [place] % (Auto) Eos % (Auto) Baso % (Auto) Neut # (Auto) Lymph # (Auto) [place] # (Auto) Eos # (Auto) Baso # (Auto) Neutrophils % (Manual) Band Neutrophils % Lymphocytes % (Manual) Monocytes % (Manual) Platelet Estimate PT INR APTT Puncture Site pCO2 pO2 HCO3 ABG pH ABG Total CO2 ABG O2 Saturation ABG Base Excess Dusty Test ABG Potassium VBG pH VBG pCO2 VBG HCO3 VBG Total CO2 VBG O2 Sat (Calc) VBG Base Excess VBG Potassium A-a O2 Difference Respiratory Index Sodium 150 H Chloride 115 H Glucose Lactate Liter Flow FiO2 Crit Value Called To Crit Value Called By Crit Value Read Back Blood Gas Notified Time Potassium 3.9 Carbon Dioxide 22 Anion Gap 16 BUN 42 H Creatinine 1.6 H Est GFR ( Amer) 44 Est GFR (Non-Af Amer) 36 POC Glucose (mg/dL) Random Glucose 206 H D Hemoglobin A1c Serum Osmolality Calcium 6.9 L Phosphorus 2.9 Magnesium 1.8 Total Bilirubin 0.3 AST 31 ALT 28 Alkaline Phosphatase 75 Total Creatine Kinase CK-MB (Mass) Troponin I Total Protein 4.7 L Albumin 2.9 L Globulin 1.9 L Albumin/Globulin Ratio 1.6 TSH 3rd Generation Arterial Blood Potassium Venous Blood Potassium Urine Color Urine Clarity Urine pH Ur Specific [place] Urine Protein Urine Glucose (UA) Urine Ketones Urine Blood Urine Nitrate Urine Bilirubin Urine Urobilinogen Ur Leukocyte Esterase Urine WBC (Auto) Urine RBC (Auto) Ur Squamous Epith Cells Urine Bacteria Urine Osmolality Ur Random Creatinine U Random Total Protein Ur Random Sodium Ur Random Potassium Ur Random Phosphorus Ur Random Glucose Ur Random Calcium Urine Magnesium Urine HCG, Qual Urine Opiates Screen U Oxycodone Qual Urine Methadone Screen Ur Barbiturates Screen Ur Phencyclidine Scrn Ur Amphetamines Screen U Benzodiazepines Scrn U Oth Cocaine Metabols U Cannabinoids Screen B-Hydroxybutyrate
--- NOTE | 2019-04-16 08:42 | RAD ---
Chest x-ray single frontal view HISTORY: Aspiration. Comparison 04/15/2019 FINDINGS: Patchy increased markings at the lung bases; left greater than right which may represent underlying infiltrate and or atelectasis. Clinical correlation. Diffuse increased interstitial lung markings. Heart size within normal limits. IMPRESSION: Patchy increased markings at the lung bases; left greater than right which may represent underlying infiltrate and or atelectasis. Clinical correlation. Diffuse increased interstitial lung markings.
[2019-04-16 09:49] LABS: ANISOCYTOSIS SLIGHT; HYPOCHROMIC SLIGHT; LARGE PLATELETS PRESENT; LYMPHOCYTE 6 % (20-40); MONOCYTE 3 % (0-10); PLATELET ESTIMATE NORMAL (NORMAL); POLYCHROMIC SLIGHT; TOTAL CELLS COUNTED 100
[2019-04-16 09:51] LABS: BANDS 6 % (0-2); NEUTROPHIL 85 % (50-75)
[2019-04-16] MEDS: Magnesium Sulfate 1 gm in D5W 1 GM/100 ML BAG IVPB SCH ×2 (10:30→11:26)
[2019-04-16] MEDS: Potassium Chl 40 mEq in D5-1/2 1,000 ML IV SCH ×3 (11:26→23:19)
[2019-04-16] MEDS ORDERED: Potassium Phosphate 15 MMOLE in Dextrose 5% In Water 250 ML IVPB ONE (11:30)
--- NOTE | 2019-04-16 11:51 | US ---
Abdominal ultrasound HISTORY: Abdominal pain. COMPARISON: None available. TECHNIQUE: Real-time sonography was performed through the abdomen. Findings: Limited portable study. Liver: Enlarged. 19.9 centimeters in length. Increased echogenicity of the hepatic parenchymal cortex suggestive for fatty infiltration versus hepatic parenchymal disease. Clinical correlation. Gallbladder: Prior cholecystectomy. Common bile duct measures 5 millimeters, within normal limits. Limited visualization of the pancreas. Spleen measures 8.9 centimeters in length, within normal limits. Visualized aorta and IVC are grossly preserved. Right kidney: 10.4 x 5.2 x 5.7 centimeters. No calculi or hydronephrosis. Left Kidney: 10.8 x 4.7 x 5.3 centimeters. Midpole 3 millimeter echogenic foci suggestive for calcification versus nonobstructive calculus. No hydronephrosis. Impression: Limited portable study. Hepatomegaly with increased echogenicity of the hepatic parenchymal cortex suggestive for fatty infiltration versus hepatic parenchymal disease. Clinical correlation. Prior cholecystectomy. Limited visualization of the pancreas. 3 millimeter midpole echogenic foci in the left kidney suggestive for calcification versus nonobstructive calculus. Clinical correlation. A preliminary report was generated at 9:47 p.m. on 04/15/[address] Porfirio Lind from [facility].
[2019-04-16] MEDS: HYDROmorphone 0.5 mg/0.5 ml ISec IVP PRN (16:10)
[2019-04-16] MEDS ORDERED: Insulin Human Regular 100 UNIT in Sodium Chloride 0.9% 99 ML IV SCH (17:30)
[2019-04-16] MEDS ORDERED: Insulin Human Regular 100 UNIT in Sodium Chloride 0.9% 99 ML SC SCH (17:30)
--- NOTE | 2019-04-16 17:31 | RAD ---
Chest x-ray single frontal view HISTORY: PICC line insertion. Comparison: 04/16/2019 Findings: Left mid axillary line extending to the level of the left mid axilla. Clinical correlation. Mild venous congestion. Patchy increased markings within the left mid to lower lung zone with trace left pleural effusion. Heart size within normal limits. Impression: Left mid axillary line extending to the level of the left mid axilla. Clinical correlation. Mild venous congestion. Patchy increased markings within the left mid to lower lung zone with trace left pleural effusion.
--- NOTE | 2019-04-16 18:15 | CP.PCM.PN ---
Subjective - Date & Time of Evaluation Date of Evaluation: 04/16/19 Time of Evaluation: 18:12 - Subjective Subjective: Patient awake, alert, good appetite Objective - Vital Signs/Intake and Output Vital Signs (last 24 hours): Temp Pulse Resp BP Pulse Ox 98.1 F 114 H 20 107/49 L 97 04/16/19 16:00 04/16/19 17:03 04/16/19 17:03 04/16/19 17:03 04/16/19 17:03 Intake and Output: 04/16/19 04/16/19 06:59 18:59 Intake Total 4642.7 2491.0 Output Total 2100 706 Balance 2542.7 1785.0 - Medications Medications: Current Medications Heparin Sodium (Porcine) (Heparin) 5,000 units SC Q12H COSME Last Admin: 04/16/19 17:28 Dose: 5,000 units Hydromorphone HCl (Dilaudid) 0.5 mg IVP Q6H PRN PRN Reason: Pain, severe (8-10) Last Admin: 04/16/19 16:10 Dose: 0.5 mg Doxycycline Hyclate 100 mg/ (Sodium Chloride) 100 mls @ 100 mls/hr IVPB Q12H COSME; Protocol Last Admin: 04/16/19 06:23 Dose: 100 mls/hr Meropenem 500 mg/ Sodium (Chloride) 100 mls @ 100 mls/hr IVPB Q8H COSME; Protocol Last Admin: 04/16/19 11:27 Dose: 100 mls/hr Potassium Chloride/Dextrose/Sod Cl (Potassium Chl 40 Meq In D5-1/2ns) 1,000 mls @ 125 mls/hr IV .Q8H COSME Last Admin: 04/16/19 17:31 Dose: Not Given Insulin Human Regular 100 unit (/ Sodium Chloride) 100 mls @ 2 mls/hr IV .Q24H COSME; Protocol Last Admin: 04/16/19 17:25 Dose: 4 unit/hr, 4 mls/hr Pantoprazole Sodium (Protonix Inj) 40 mg IVP Q12H COSME Last Admin: 04/16/19 06:24 Dose: 40 mg - Labs Labs: 04/16/19 06:58 04/16/19 06:58 PT 10.3 SECONDS (9.7-12.2) 04/15/19 15:41 INR 0.9 04/15/19 15:41 APTT 25.2 SECONDS (21-34) 04/15/19 15:41 - Head Exam Head Exam: ATRAUMATIC, NORMAL INSPECTION - Eye Exam Eye Exam: EOMI - ENT Exam ENT Exam: Mucous Membranes Moist - Neck Exam Neck Exam: Full ROM - Respiratory Exam Respiratory Exam: Clear to Ausculation Bilateral, Rales, NORMAL BREATHING PATTERN - Cardiovascular Exam Cardiovascular Exam: REGULAR RHYTHM, +S1, +S2 - GI/Abdominal Exam GI & Abdominal Exam: Soft, Normal Bowel Sounds. absent: Tenderness, Hypoactive Bowel Sounds, Pulsatile Mass, Rebound - Back Exam Back Exam: NORMAL INSPECTION - Neurological Exam Neurological Exam: Alert, Awake, Oriented x3 Neuro motor strength exam: Left Upper Extremity: 5, Right Upper Extremity: 5, Left Lower Extremity: 5, Right Lower Extremity: 5 - Psychiatric Exam Psychiatric exam: Anxious - Skin Skin Exam: Normal Color, Warm Assessment and Plan - Assessment and Plan (Free Text) Assessment: -DKA: resolving anion gap 22, continue IV insulin + IVF, check and replace all electrolytes -RICCO: creatinine improving -Shock; resolved off pressors -Sepsis: continue zosyn + doxy, lactic normalizing, culutres penidng -dvt ppx heparin sq -PUD ppx protonix -AMS: resolved, Utox pending -left arm MID line placed and femoral line removed. -Patient clinical much better. -Utox pending. -suspect drug seeker, will obtain psych eval, currenlty dilaudid for PRn pain
--- NOTE | 2019-04-16 19:39 | CP.PCM.PN ---
Subjective - Date & Time of Evaluation Date of Evaluation: 04/16/19 Time of Evaluation: 07:20 - Subjective Subjective: dict Objective - Vital Signs/Intake and Output Vital Signs (last 24 hours): Temp Pulse Resp BP Pulse Ox 98.1 F 105 H 16 108/58 L 99 04/16/19 16:00 04/16/19 19:01 04/16/19 19:01 04/16/19 19:01 04/16/19 19:01 Intake and Output: 04/16/19 04/17/19 18:59 06:59 Intake Total 2720.0 129 Output Total 1385 0 Balance 1335.0 129 - Medications Medications: Current Medications Heparin Sodium (Porcine) (Heparin) 5,000 units SC Q12H COSME Last Admin: 04/16/19 17:28 Dose: 5,000 units Hydromorphone HCl (Dilaudid) 0.5 mg IVP Q6H PRN PRN Reason: Pain, severe (8-10) Last Admin: 04/16/19 16:10 Dose: 0.5 mg Doxycycline Hyclate 100 mg/ (Sodium Chloride) 100 mls @ 100 mls/hr IVPB Q12H COSME; Protocol Last Admin: 04/16/19 18:26 Dose: 100 mls/hr Meropenem 500 mg/ Sodium (Chloride) 100 mls @ 100 mls/hr IVPB Q8H COSME; Protocol Last Admin: 04/16/19 11:27 Dose: 100 mls/hr Potassium Chloride/Dextrose/Sod Cl (Potassium Chl 40 Meq In D5-1/2ns) 1,000 mls @ 125 mls/hr IV .Q8H COSME Last Admin: 04/16/19 17:31 Dose: Not Given Insulin Human Regular 100 unit (/ Sodium Chloride) 100 mls @ 2 mls/hr IV .Q24H COSME; Protocol Last Admin: 04/16/19 17:25 Dose: 4 unit/hr, 4 mls/hr Pantoprazole Sodium (Protonix Inj) 40 mg IVP Q12H COSME Last Admin: 04/16/19 18:29 Dose: 40 mg - Labs Labs: 04/16/19 06:58 04/16/19 06:58 PT 10.3 SECONDS (9.7-12.2) 04/15/19 15:41 INR 0.9 04/15/19 15:41 APTT 25.2 SECONDS (21-34) 04/15/19 15:41
--- NOTE | 2019-04-16 21:02 | PCM.PROC ---
Procedures Attestation:: I certify that I have explained the specified Operation(s) or Procedure(s), risks, benefits and reasonable alternatives to the Patient and/or other person responsible. The opportunity was given to ask questions and all questions answered - Central Line Placement Left Basilic Vein PICC Line Aseptic technique was employed throughout the procedure: Full sterile barriers (mask, hair cover, sterile gown, sterile gloves), Chloraprep Antiseptic: 30 second prep for IJ or SC sites CVP Time Out Performed: Yes Pt. Placed on Pulse Ox Monitor: Yes Central Line Prep: Chlorhexidine-Alcohol Combination Local Anesthesia Used: Lidocaine 1% Amount of Anesthesia Used (mls): 5 Ultrasound Used for Placement: Yes Central Line Lumen Inserted: double Central Line Length: 20 cm Post Procedure: Sutured in Place, Good Blood Return, All Ports Aspirated, Flus hed, Capped, Sterile Dressing Applied Secured by: Suture Post procedure dressing: Gauze, Clear vapor permeable, Chlorhexidine disc (Biopatch) Post Procedure X-Ray: Yes Patient Tolerated Procedure: Well Immediate Complications: None
[2019-04-16 22:02] LABS: ALB/GLOB RATIO 1.3 (1.0-2.1); ALBUMIN 2.8 g/dL (3.5-5.0); ALT/SGPT 28 U/L (9-52); AST/SGOT 31 U/L (14-36); BLOOD UREA NITROGEN 24 mg/dL (7-17); CALCIUM 7.6 mg/dl (8.6-10.4); GFR NON-AFRICAN AMERICAN > 60
--- NOTE | 2019-04-16 22:38 | CP.PCM.CON ---
History of Present Illness - History of Present Illness History of Present Illness: uncontrolled type 1 dm Past Patient History - Infectious Disease Hx of Infectious Diseases: None - Past Medical History & Family History Past Medical History?: Yes - Past Social History Smoking Status: Never Smoked - CARDIAC Hx Cardiac Disorders: No - PULMONARY Hx Respiratory Disorders: No - NEUROLOGICAL Hx Neurological Disorder: No - HEENT Hx HEENT Problems: No - RENAL Hx Chronic Kidney Disease: No - ENDOCRINE/METABOLIC Hx Endocrine Disorders: Yes Hx Diabetes Mellitus Type 1: Yes - HEMATOLOGICAL/ONCOLOGICAL Hx Blood Disorders: No - INTEGUMENTARY Hx Dermatological Problems: No - MUSCULOSKELETAL/RHEUMATOLOGICAL Hx Musculoskeletal Disorders: Yes Other/Comment: LYME DISEASE - GASTROINTESTINAL Hx Gastrointestinal Disorders: No - GENITOURINARY/GYNECOLOGICAL Hx Genitourinary Disorders: No - PSYCHIATRIC Hx Substance Use: No - SURGICAL HISTORY Hx Cholecystectomy: Yes Hx Tonsillectomy: Yes - ANESTHESIA Hx Anesthesia: Yes Hx Anesthesia Reactions: No Hx Malignant Hyperthermia: No Meds Allergies/Adverse Reactions: Allergies Allergy/AdvReac Type Severity Reaction Status Date / Time hydrocodone Allergy ITCHING Verified 04/01/17 10:02 - Medications Medications: Current Medications Heparin Sodium (Porcine) (Heparin) 5,000 units SC Q12H COSME Last Admin: 04/16/19 17:28 Dose: 5,000 units Hydromorphone HCl (Dilaudid) 0.5 mg IVP Q6H PRN PRN Reason: Pain, severe (8-10) Last Admin: 04/16/19 16:10 Dose: 0.5 mg Doxycycline Hyclate 100 mg/ (Sodium Chloride) 100 mls @ 100 mls/hr IVPB Q12H COSME; Protocol Last Admin: 04/16/19 18:26 Dose: 100 mls/hr Meropenem 500 mg/ Sodium (Chloride) 100 mls @ 100 mls/hr IVPB Q8H COSME; Protocol Last Admin: 04/16/19 20:12 Dose: 100 mls/hr Potassium Chloride/Dextrose/Sod Cl (Potassium Chl 40 Meq In D5-1/2ns) 1,000 mls @ 125 mls/hr IV .Q8H COSME Last Admin: 04/16/19 17:31 Dose: Not Given Insulin Human Regular 100 unit (/ Sodium Chloride) 100 mls @ 2 mls/hr IV .Q24H COSME; Protocol Last Admin: 04/16/19 17:25 Dose: 4 unit/hr, 4 mls/hr Potassium Phosphate 15 mmole/ (Sodium Chloride) 255 mls @ 42.5 mls/hr IVPB Q4 COSME Stop: 04/17/19 07:59 Metoclopramide HCl (Reglan) 10 mg PO ACHS COSME Pantoprazole Sodium (Protonix Inj) 40 mg IVP Q12H COSME Last Admin: 04/16/19 18:29 Dose: 40 mg Results - Vital Signs Recent Vital Signs: Last Vital Signs Temp 98.1 F 04/16/19 16:00 Pulse 108 H 04/16/19 21:37 Resp 15 04/16/19 21:37 BP 118/69 04/16/19 21:37 Pulse Ox 99 04/16/19 21:37 - Labs Result Diagrams: 04/16/19 06:58 04/16/19 21:38 Labs: Laboratory Results - last 24 hr 04/15/19 04/15/19 04/15/19 17:13 18:04 19:03 WBC RBC Hgb Hct MCV MCH MCHC RDW Plt Count MPV Neut % (Auto) Lymph % (Auto) Hendricks % (Auto) Eos % (Auto) Baso % (Auto) Neut # (Auto) Lymph # (Auto) Hendricks # (Auto) Eos # (Auto) Baso # (Auto) Neutrophils % (Manual) Band Neutrophils % Lymphocytes % (Manual) Monocytes % (Manual) Platelet Estimate Large Platelets Polychromasia Hypochromasia (manual) Anisocytosis (manual) Macrocytosis (manual) Sodium Potassium Chloride Carbon Dioxide Anion Gap BUN Creatinine Est GFR ( Amer) Est GFR (Non-Af Amer) POC Glucose (mg/dL) > 500 H* > 500 H* > 500 H* Random Glucose Serum Osmolality Calcium Phosphorus Magnesium Total Bilirubin AST ALT Alkaline Phosphatase Total Protein Albumin Globulin Albumin/Globulin Ratio Urine Osmolality Ur Random Creatinine U Random Total Protein Ur Random Sodium Ur Random Potassium Ur Random Phosphorus Ur Random Glucose Ur Random Calcium Urine Magnesium U Oxycodone Qual 04/15/19 04/15/19 04/15/19 20:02 21:12 21:54 WBC RBC Hgb Hct MCV MCH MCHC RDW Plt Count MPV Neut % (Auto) Lymph % (Auto) Hendricks % (Auto) Eos % (Auto) Baso % (Auto) Neut # (Auto) Lymph # (Auto) Hendricks # (Auto) Eos # (Auto) Baso # (Auto) Neutrophils % (Manual) Band Neutrophils % Lymphocytes % (Manual) Monocytes % (Manual) Platelet Estimate Large Platelets Polychromasia Hypochromasia (manual) Anisocytosis (manual) Macrocytosis (manual) Sodium Potassium Chloride Carbon Dioxide Anion Gap BUN Creatinine Est GFR ( Amer) Est GFR (Non-Af Amer) POC Glucose (mg/dL) > 500 H* > 500 H* > 500 H* Random Glucose Serum Osmolality Calcium Phosphorus Magnesium Total Bilirubin AST ALT Alkaline Phosphatase Total Protein Albumin Globulin Albumin/Globulin Ratio Urine Osmolality Ur Random Creatinine U Random Total Protein Ur Random Sodium Ur Random Potassium Ur Random Phosphorus Ur Random Glucose Ur Random Calcium Urine Magnesium U Oxycodone Qual 04/15/19 04/15/19 04/15/19 22:30 22:30 22:30 WBC 33.2 H RBC 3.39 L Hgb 10.2 L Hct 30.2 L MCV 89.0 D MCH 30.0 MCHC 33.7 RDW 13.7 Plt Count 340 MPV 7.7 Neut % (Auto) 91.9 H Lymph % (Auto) 4.9 L Hendricks % (Auto) 2.7 Eos % (Auto) 0.3 Baso % (Auto) 0.2 Neut # (Auto) 30.5 H Lymph # (Auto) 1.6 Hendricks # (Auto) 0.9 H Eos # (Auto) 0.1 Baso # (Auto) 0.1 Neutrophils % (Manual) Band Neutrophils % Lymphocytes % (Manual) Monocytes % (Manual) Platelet Estimate Large Platelets Polychromasia Hypochromasia (manual) Anisocytosis (manual) Macrocytosis (manual) Sodium 148 Potassium 2.9 L Chloride 110 H Carbon Dioxide 14 L Anion Gap 27 H BUN 47 H Creatinine 2.8 H Est GFR ( Amer) 23 Est GFR (Non-Af Amer) 19 POC Glucose (mg/dL) Random Glucose 491 H* D Serum Osmolality 360 H Calcium 7.3 L Phosphorus 0.9 L* Magnesium 2.1 Total Bilirubin 0.3 AST 28 ALT 24 Alkaline Phosphatase 81 Total Protein 4.9 L Albumin 2.9 L Globulin 2.0 L Albumin/Globulin Ratio 1.5 Urine Osmolality Ur Random Creatinine U Random Total Protein Ur Random Sodium Ur Random Potassium Ur Random Phosphorus Ur Random Glucose Ur Random Calcium Urine Magnesium U Oxycodone Qual 04/16/19 04/16/19 04/16/19 00:02 01:03 01:59 WBC RBC Hgb Hct MCV MCH MCHC RDW Plt Count MPV Neut % (Auto) Lymph % (Auto) Hendricks % (Auto) Eos % (Auto) Baso % (Auto) Neut # (Auto) Lymph # (Auto) Hendricks # (Auto) Eos # (Auto) Baso # (Auto) Neutrophils % (Manual) Band Neutrophils % Lymphocytes % (Manual) Monocytes % (Manual) Platelet Estimate Large Platelets Polychromasia Hypochromasia (manual) Anisocytosis (manual) Macrocytosis (manual) Sodium Potassium Chloride Carbon Dioxide Anion Gap BUN Creatinine Est GFR ( Amer) Est GFR (Non-Af Amer) POC Glucose (mg/dL) 451 H* 416 H* 352 H Random Glucose Serum Osmolality Calcium Phosphorus Magnesium Total Bilirubin AST ALT Alkaline Phosphatase Total Protein Albumin Globulin Albumin/Globulin Ratio Urine Osmolality Ur Random Creatinine U Random Total Protein Ur Random Sodium Ur Random Potassium Ur Random Phosphorus Ur Random Glucose Ur Random Calcium Urine Magnesium U Oxycodone Qual 04/16/19 04/16/19 04/16/19 02:50 02:50 02:50 WBC RBC Hgb Hct MCV MCH MCHC RDW Plt Count MPV Neut % (Auto) Lymph % (Auto) Hendricks % (Auto) Eos % (Auto) Baso % (Auto) Neut # (Auto) Lymph # (Auto) Hendricks # (Auto) Eos # (Auto) Baso # (Auto) Neutrophils % (Manual) Band Neutrophils % Lymphocytes % (Manual) Monocytes % (Manual) Platelet Estimate Large Platelets Polychromasia Hypochromasia (manual) Anisocytosis (manual) Macrocytosis (manual) Sodium 149 H Potassium 3.6 Chloride 114 H Carbon Dioxide 22 Anion Gap 17 BUN 44 H Creatinine 1.9 H Est GFR ( Amer) 36 Est GFR (Non-Af Amer) 30 POC Glucose (mg/dL) Random Glucose 316 H D Serum Osmolality Calcium 7.2 L Phosphorus 1.9 L Magnesium 1.9 Total Bilirubin 0.2 AST 27 ALT 30 Alkaline Phosphatase 79 Total Protein 4.9 L Albumin 2.9 L Globulin 2.1 L Albumin/Globulin Ratio 1.4 Urine Osmolality 496 Ur Random Creatinine 32 U Random Total Protein 25.0 H Ur Random Sodium 69 Ur Random Potassium 16.1 Ur Random Phosphorus 10.1 Ur Random Glucose 2354 Ur Random Calcium 3.4 Urine Magnesium < 1.2 U Oxycodone Qual Positive H 04/16/19 04/16/19 04/16/19 03:11 04:06 04:23 WBC 26.7 H RBC 3.22 L Hgb 9.8 L Hct 28.1 L MCV 87.3 MCH 30.3 MCHC 34.7 RDW 13.5 Plt Count 307 MPV 8.0 Neut % (Auto) 93.6 H Lymph % (Auto) 3.0 L Hendricks % (Auto) 3.2 Eos % (Auto) 0.1 Baso % (Auto) 0.1 Neut # (Auto) 25.0 H Lymph # (Auto) 0.8 L Hendricks # (Auto) 0.9 H Eos # (Auto) 0.0 Baso # (Auto) 0.0 Neutrophils % (Manual) 85 H Band Neutrophils % 6 H Lymphocytes % (Manual) 6 L Monocytes % (Manual) 3 Platelet Estimate Normal Large Platelets Present Polychromasia Slight Hypochromasia (manual) Slight Anisocytosis (manual) Slight Macrocytosis (manual) Slight Sodium Potassium Chloride Carbon Dioxide Anion Gap BUN Creatinine Est GFR ( Amer) Est GFR (Non-Af Amer) POC Glucose (mg/dL) 336 H 296 H Random Glucose Serum Osmolality Calcium Phosphorus Magnesium Total Bilirubin AST ALT Alkaline Phosphatase Total Protein Albumin Globulin Albumin/Globulin Ratio Urine Osmolality Ur Random Creatinine U Random Total Protein Ur Random Sodium Ur Random Potassium Ur Random Phosphorus Ur Random Glucose Ur Random Calcium Urine Magnesium U Oxycodone Qual 04/16/19 04/16/19 04/16/19 05:27 06:58 06:58 WBC 22.5 H RBC 3.17 L Hgb 9.7 L Hct 27.7 L MCV 87.4 MCH 30.5 MCHC 34.9 RDW 13.7 Plt Count 307 MPV 8.2 Neut % (Auto) 90.8 H Lymph % (Auto) 4.6 L Hendricks % (Auto) 4.5 Eos % (Auto) 0.0 Baso % (Auto) 0.1 Neut # (Auto) 20.4 H Lymph # (Auto) 1.0 Hendricks # (Auto) 1.0 H Eos # (Auto) 0.0 Baso # (Auto) 0.0 Neutrophils % (Manual) Band Neutrophils % Lymphocytes % (Manual) Monocytes % (Manual) Platelet Estimate Large Platelets Polychromasia Hypochromasia (manual) Anisocytosis (manual) Macrocytosis (manual) Sodium 150 H Potassium 3.9 Chloride 115 H Carbon Dioxide 22 Anion Gap 16 BUN 42 H Creatinine 1.6 H Est GFR ( Amer) 44 Est GFR (Non-Af Amer) 36 POC Glucose (mg/dL) 262 H Random Glucose 206 H D Serum Osmolality Calcium 6.9 L Phosphorus 2.9 Magnesium 1.8 Total Bilirubin 0.3 AST 31 ALT 28 Alkaline Phosphatase 75 Total Protein 4.7 L Albumin 2.9 L Globulin 1.9 L Albumin/Globulin Ratio 1.6 Urine Osmolality Ur Random Creatinine U Random Total Protein Ur Random Sodium Ur Random Potassium Ur Random Phosphorus Ur Random Glucose Ur Random Calcium Urine Magnesium U Oxycodone Qual 04/16/19 21:38 WBC RBC Hgb Hct MCV MCH MCHC RDW Plt Count MPV Neut % (Auto) Lymph % (Auto) Hendricks % (Auto) Eos % (Auto) Baso % (Auto) Neut # (Auto) Lymph # (Auto) Hendricks # (Auto) Eos # (Auto) Baso # (Auto) Neutrophils % (Manual) Band Neutrophils % Lymphocytes % (Manual) Monocytes % (Manual) Platelet Estimate Large Platelets Polychromasia Hypochromasia (manual) Anisocytosis (manual) Macrocytosis (manual) Sodium 145 Potassium 3.4 L Chloride 111 H Carbon Dioxide 26 Anion Gap 12 BUN 24 H Creatinine 0.9 Est GFR ( Amer) > 60 Est GFR (Non-Af Amer) > 60 POC Glucose (mg/dL) Random Glucose 236 H Serum Osmolality Calcium 7.6 L Phosphorus 1.8 L Magnesium 2.2 Total Bilirubin 0.2 AST 31 ALT 28 Alkaline Phosphatase 71 Total Protein 5.0 L Albumin 2.8 L Globulin 2.2 Albumin/Globulin Ratio 1.3 Urine Osmolality Ur Random Creatinine U Random Total Protein Ur Random Sodium Ur Random Potassium Ur Random Phosphorus Ur Random Glucose Ur Random Calcium Urine Magnesium U Oxycodone Qual Assessment & Plan (1) DKA (diabetic ketoacidoses) Assessment and Plan: Endocrine consult reason for consult: uncontrolled diabetes Source: patient ( vague ) and chart review Sonali Rivera is 38 y/o found unresponsive , admitted for altered mental status found with glucose > 700 , woke up without answering question or following commends after Narcan , bicarbonate , NS & epinephrines as per pt. who is awake on & off & only to self & place , has DM type 1 (+) neuropathy / gastroparesis , (+) retinopathy , (-) nephropathy (-) CAD (-) PVD outpatient diabetes management regimen : unawake of her insulin name or type , however admits to ran out for few weeks to 2 month ! inpatient diabetes management regimen: on insulin drip blood glucose log :200-300 NO hypoglycemia also denies thyroid disorder Allergy hydrocodone Past medical history:not documented Past surgical history: cholecystectomy, tonsillectomy, fascial surgery Psychiatry history: not documented , pt denied Social history: denies smoking & ETOH use , possible illicit drug use as per record review Family history: mother with HTN ROS: Constitutional: denies fever, tiredness/weakness. HEENT: denies earache, change in voice .Respiratory: denies cough, sob . CVS :no chest pain, no palpitations . Abdomen: no abdominal pain, no nausea /vomiting, no change bowel movement. [place] : denies light-headedness, dizziness. Extremities: no edema, no tremors. Skin: no itching, no rash LMP 04/15/2019 as per pt. Physical exam Well-developed AAO on & off to self & place , ,NAD , warm to touch VSS HEENT: norm cephalic, atraumatic, no lid lag , no exophthalmos NECK: supple, no palpable lymphadenopathy THYROID: no palpable thyromegaly, not tender CHEST: fair air entry, bilateral, CVS: S1,S2 ABDOMEN: bowel sound present, benign, obese, no wide purple striae , no bruises EXTREMITIES: no edema, clubbing or cyanosis, no palpable hand tremors Skin: no acanthosis nigricans -lab: tsh 0.43 , a1c 7.8 , (+) ketones ,AG 12 , wbc 22.5 was 33.2 , h/h 9.7/27.2 , cr 0.9 , calcium 7.6 , alb 2.8 corrected 8.8 , urine 3+ glucose urine drug scree (+) oxycodone urine (-) Assessment: DKA low TSH elevated wbs/ sepsis/ septic shock on antibiotics , ID on board altered mental status plan : continue regular insulin drip continue NS monitor electrolyte obtain thyroid functions & abs obtain vitamin d 25-oh level Thank you for allowing me to participate in the care of the patient, we will follow with you. Dr. Mullen ,Jennifer # [phone] office Fridays & Saturdays address: [address] [place] [address] ,phone # [phone] ,FAX [phone] Status: Acute (2) Low TSH level Status: Acute (3) Altered mental state Status: Acute (4) Elevated WBCs Status: Acute
[2019-04-17] MEDS: Potassium Chl 40 mEq in D5-1/2 1,000 ML IV SCH (01:46)
--- NOTE | 2019-04-17 02:04 | PN ---
DATE: 04/16/2019 SUBJECTIVE: The patient is improving. Her anion gap is closing. She is more alert. She is weak. She is in distress. The patient has cough, wheezing. Chest x-ray, looks like pneumonia. Cultures are pending. No fever at the moment. WBC is going down. PHYSICAL EXAMINATION: VITAL SIGNS: Blood pressure 118/69, pulse , respiratory rate 20, and temperature 99. LUNGS: Bilateral scattered rales, no rhonchi. CARDIOVASCULAR SYSTEM: S1 and S2, regular. ABDOMEN: Soft. ASSESSMENT: 1. Rule out septicemia, rule out pneumonia. 2. Diabetic ketoacidosis. 3. Drug overdose. PLAN: IV fluids, Accu-Cheks, sliding scale, antibiotics. ID followup. Monitor the patient. Calvin Toth MD
[2019-04-17] MEDS: Potassium Phosphate 15 MMOLE in Sodium Chloride 0.9% 250 ML IVPB SCH (04:00)
[2019-04-17] MEDS: Meropenem 500 MG in Sodium Chloride 0.9% 100 ML IVPB SCH (04:00)
[2019-04-17 06:09] LABS: BASO % 0.2 % (0.0-2.0); HEMOGLOBIN 9.5 g/dL (11.0-16.0); LYMPH # 3.1 K/uL (1.0-4.3); LYMPH % 25.5 % (20.0-40.0); MEAN CORPUSCULAR HEMOGLOBIN 30.4 pg (27.0-31.0); MEAN CORPUSCULAR HGB CONC 34.6 g/dL (33.0-37.0); MEAN PLATELET VOLUME 8.1 fL (7.2-11.7); MONO # 0.4 K/uL (0.0-0.8); MONO % 3.2 % (0.0-10.0); NEUT # 8.7 K/uL (1.8-7.0); NEUT % 71.1 % (50.0-75.0); NRBC % 0.1 % (0.0-2.0); RBC 3.11 Mil/uL (3.80-5.20); RED CELL DISTRIBUTION WIDTH 14.1 % (11.5-14.5); WHITE BLOOD COUNT 12.3 K/uL (4.8-10.8)
[2019-04-17 06:27] LABS: ALB/GLOB RATIO 1.3 (1.0-2.1); ALBUMIN 2.5 g/dL (3.5-5.0); ALT/SGPT 22 U/L (9-52); AST/SGOT 25 U/L (14-36); BLOOD UREA NITROGEN 14 mg/dL (7-17); CALCIUM 7.4 mg/dl (8.6-10.4); GFR NON-AFRICAN AMERICAN > 60
[2019-04-17] MEDS ORDERED: Potassium Chloride 20 mEq/15 ml LIQ UD PO ONE (09:00)
[2019-04-17] MEDS: Insulin Detemir 100 units/ml Vial (Levemir) SC SCH (09:33)
[2019-04-17] MEDS: (Novolog) Insulin Aspart, Recombinant 100 u/ml 10 ml vial SC SCH ×2 (11:14→16:26)
[2019-04-17] MEDS: HYDROmorphone 0.5 mg/0.5 ml ISec IVP PRN ×2 (14:17→20:26)
--- NOTE | 2019-04-17 15:38 | CP.PCM.CON ---
History of Present Illness - History of Present Illness History of Present Illness: 38yo F with PMH DM type 1 brought in by EMS to ED for unresponsiveness. Admitted with possible drug OD and DKA . ID consult requested for possible infection / sepsis Denies fever or chills PMH DM I with retinopathy SxH: L facial reconstructions, exlap, tonsillectomy FamH: father [place], mother HTN SocH: no tobacco use. substance use, unknown specific type Allergies: hydrocodone Meds: as per EMR Review of Systems - Constitutional Constitutional: As Per HPI - EENT Eyes: absent: As Per HPI, Blind Spots, Blurred Vision, Change in Vision, Decreased Night Vision, Diplopia, Discharge, Dry Eye, Exophthalmos, Floaters, Irritation, Itchy Eyes, Loss of Peripheral Vision, Pain, Photophobia, Requires Corrective Lenses, Sees Flashes, Spots in Vision, Tunnel Vision, Other Visual Disturbances, Loss of Vision, Other Ears: absent: As Per HPI, Decreased Hearing, Ear Discharge, Ear Pain, Tinnitus, Abnormal Hearing, Disequilibrium, Dizziness, Other Nose/Mouth/Throat: absent: As Per HPI, Epistaxis, Nasal Congestion, Nasal Discharge, Nasal Obstruction, Nasal Trauma, Nose Pain, Post Nasal Drip, Sinus Pain, Sinus Pressure, Bleeding Gums, Change in Voice, Dental Pain, Dry Mouth, Dysphagia, Halitosis, Hoarsness, Lip Swelling, Mouth Lesions, Mouth Pain, Odynophagia, Sore Throat, Throat Swelling, Tongue Swelling, Facial Pain, Neck Pain, Neck Mass, Other - Breasts Breasts: absent: As Per HPI, Change in Shape, Mass, Pain, Nipple Discharge, Nipple Inversion, Skin Changes, Swelling, Other - Cardiovascular Cardiovascular: absent: As Per HPI, Acrocyanosis, Chest Pain, Chest Pain at Rest, Chest Pain with Activity, Claudication, Diaphoresis, Dyspnea, Dyspnea on Exertion, Edema, Irregular Heart Rhythm, Pain Radiating to Arm/Neck/Jaw, Leg Edema, Leg Ulcers, Lightheadedness, Orthopnea, Palpitations, Paroxysmal Nocturnal Dyspnea, Pedal Edema, Radiating Pain, Rapid Heart Rate, Slow Heart Rate, Syncope, Other - Respiratory Respiratory: absent: As Per HPI, Cough, Dyspnea, Hemoptysis, Dyspnea on Exertion, Wheezing, Snoring, Stridor, Pain on Inspiration, Chest Congestion, Excessive Mucous Production, Change in Mucous Color, Pain with Coughing, Other - Gastrointestinal Gastrointestinal: As Per HPI - Reproductive: Female Reproductive:Female: absent: As Per HPI, Amenorrhea, Amenorrhea/ Control, Currently Menstual, Cycle <21 Days, Cycle >35 Days, Cycle Variable, Menses 1-7 Days, Menses >/= 8 Days, Menses Variable, Cycle > 4 Weeks Between, No Menses for 6 Months, Heavy Menses, Light Menses, Normal Menses, Spotting Between Cycles, S/P Hysterectomy, Menopausal, Post Menopausal, Premenarche, Abnormal Vaginal Bleeding, Dysmenorrhea, Dyspareunia, Genital Lesions, Genital Pruritis, Pelvic Pain, Prolapse Symptoms, Sexual Dysfunction, Vaginal Discharge, Vaginal Dryness, Vaginal Odor, Vaginal Pruritis, Other - Menstruation Menstruation: absent: As Per HPI, Amenorrhea, Amenorrhea/ Control, Currently Menstual, Cycle <21 Days, Cycle >35 Days, Cycle Variable, Menses 1-7 Days, Menses >/= 8 Days, Menses Variable, Cycle > 4 Weeks Between, No Menses for 6 Months, Heavy Menses, Light Menses, Normal Menses, Spotting Between Cycles, S/P Hysterectomy, Menopausal, Post Menopausal, Premenarche, Abnormal Vaginal Bleeding, Dysmenorrhea, Other - Musculoskeletal Musculoskeletal: absent: As Per HPI, Abnormal Gait, Arthralgias, Atrophy, Back Pain, Deformity, Joint Swelling, Limited Range of Motion, Loss of Height, Muscle Cramps, Muscle Weakness, Myalgias, Neck Pain, Numbness, Radiating Pain into Limb, Stiffness, Tingling, Other - Integumentary Integumentary: absent: As Per HPI, Acne, Alopecia, Bleeding Lesions, Change in Hair, Change in Nails, Change in Pigmentation, Changing Lesions, Dry Skin, Erythema, Furuncle, Hirsutism, Lesions, New Lesions, Non-Healing Lesions, Photosensitivity, Pruritus, Rash, Skin Pain, Skin Ulcer, Sores, Striae, Swelling, Unusual Bruising, Wounds, Jaundice, Other - Neurological Neurological: absent: As Per HPI, Abnormal Gait, Abnormal Hearing, Abnormal Movements, Abnormal Speech, Behavioral Changes, Burning Sensations, Confusion, Convulsions, Disequilibrium, Dizziness, Numbness, Focal Weakness, Frequent Falls, Headaches, Lack of Coordination, Loss of Vision, Memory Loss, Paresthesias, Radicular Pain, Restless Legs, Sensory Deficit, Syncope, Tingling, Tremor, Vertigo, Weakness, Other Visual Disturbances, Other - Psychiatric Psychiatric: absent: As Per HPI, Abnormal Sleep Pattern, Anhedonia, Anxiety, Auditory Hallucinations, Behavioral Changes, Change in Appetite, Change in Libido, Confusion, Depression, Difficulty Concentrating, Hallucinations, Homicidal Ideation, Hopelessness, Irritability, Memory Loss, Mood Swings, Panic Attacks, Paranoia, Suicidal Ideation, Visual Hallucinations, Tactile Hallucinations, Other - Endocrine Endocrine: As Per HPI - Hematologic/Lymphatic Hematologic: absent: As Per HPI, Easy Bleeding, Easy Bruising, Lymphadenopathy, Other Past Patient History - Infectious Disease Hx of Infectious Diseases: None - Past Medical History & Family History Past Medical History?: Yes - Past Social History Smoking Status: Never Smoked - CARDIAC Hx Cardiac Disorders: No - PULMONARY Hx Respiratory Disorders: No - NEUROLOGICAL Hx Neurological Disorder: No - HEENT Hx HEENT Problems: No - RENAL Hx Chronic Kidney Disease: No - ENDOCRINE/METABOLIC Hx Endocrine Disorders: Yes Hx Diabetes Mellitus Type 1: Yes - HEMATOLOGICAL/ONCOLOGICAL Hx Blood Disorders: No - INTEGUMENTARY Hx Dermatological Problems: No - MUSCULOSKELETAL/RHEUMATOLOGICAL Hx Musculoskeletal Disorders: Yes Other/Comment: LYME DISEASE - GASTROINTESTINAL Hx Gastrointestinal Disorders: No - GENITOURINARY/GYNECOLOGICAL Hx Genitourinary Disorders: No - PSYCHIATRIC Hx Substance Use: No - SURGICAL HISTORY Hx Cholecystectomy: Yes Hx Tonsillectomy: Yes - ANESTHESIA Hx Anesthesia: Yes Hx Anesthesia Reactions: No Hx Malignant Hyperthermia: No Meds Allergies/Adverse Reactions: Allergies Allergy/AdvReac Type Severity Reaction Status Date / Time hydrocodone Allergy ITCHING Verified 04/01/17 10:02 - Medications Medications: Current Medications Acetaminophen (Tylenol 325mg Tab) 650 mg PO Q6 PRN PRN Reason: Pain, Mild (1-3) Last Admin: 04/17/19 10:45 Dose: 650 mg Heparin Sodium (Porcine) (Heparin) 5,000 units SC Q12H [facility] Last Admin: 04/17/19 06:17 Dose: 5,000 units Hydromorphone HCl (Dilaudid) 0.5 mg IVP Q6H PRN PRN Reason: Pain, severe (8-10) Last Admin: 04/17/19 14:17 Dose: 0.5 mg Doxycycline Hyclate 100 mg/ (Sodium Chloride) 100 mls @ 100 mls/hr IVPB Q12H [facility]; Protocol Last Admin: 04/17/19 06:17 Dose: 100 mls/hr Insulin Aspart (Novolog) 0 unit SC [facility]; Protocol Last Admin: 04/17/19 11:14 Dose: 4 units Insulin Detemir (Levemir) 25 unit SC DAILY [facility] Last Admin: 04/17/19 09:33 Dose: 25 units Metoclopramide HCl (Reglan) 10 mg PO ACHS [facility] Last Admin: 04/17/19 11:14 Dose: 10 mg Pantoprazole Sodium (Protonix Inj) 40 mg IVP Q12H [facility] Last Admin: 04/17/19 06:17 Dose: 40 mg Physical Exam - Constitutional Appears: Non-toxic, No Acute Distress, Chronically Ill - Head Exam Head Exam: NORMOCEPHALIC - Eye Exam Eye Exam: absent: Scleral icterus - ENT Exam ENT Exam: Mucous Membranes Dry, Normal Oropharynx - Neck Exam Neck exam: Negative for: Lymphadenopathy - Respiratory Exam Respiratory Exam: Decreased Breath Sounds, Clear to Auscultation Bilateral - Cardiovascular Exam Cardiovascular Exam: REGULAR RHYTHM, +S1, +S2 - GI/Abdominal Exam GI & Abdominal Exam: Diminished Bowel Sounds, Soft. absent: Tenderness - Rectal Exam Rectal Exam: Deferred - Exam Exam: NORMAL INSPECTION - Extremities Exam Extremities exam: Positive for: pedal pulses present. Negative for: calf tender ness, pedal edema, tenderness - Back Exam Back exam: absent: CVA tenderness (L), CVA tenderness (R), paraspinal tenderness - Neurological Exam Neurological exam: Alert, CN II-XII Intact, Oriented x3, Reflexes Normal - Psychiatric Exam Psychiatric exam: Depressed - Skin Skin Exam: Dry, Intact Results - Vital Signs Recent Vital Signs: Last Vital Signs Temp 97.9 F 04/17/19 12:00 Pulse 85 04/17/19 12:56 Resp 19 04/17/19 12:56 BP 120/67 04/17/19 12:56 Pulse Ox 98 04/17/19 12:56 - Labs Result Diagrams: 04/17/19 06:03 04/17/19 06:03 Labs: Laboratory Results - last 24 hr 04/16/19 04/16/19 04/16/19 06:23 07:30 08:25 WBC RBC Hgb Hct MCV MCH MCHC RDW Plt Count MPV Neut % (Auto) Lymph % (Auto) [place] % (Auto) Eos % (Auto) Baso % (Auto) Neut # (Auto) Lymph # (Auto) [place] # (Auto) Eos # (Auto) Baso # (Auto) Sodium Potassium Chloride Carbon Dioxide Anion Gap BUN Creatinine Est GFR ( Amer) Est GFR (Non-Af Amer) POC Glucose (mg/dL) 229 H 239 H 229 H Random Glucose Calcium Phosphorus Magnesium Total Bilirubin AST ALT Alkaline Phosphatase Total Protein Albumin Globulin Albumin/Globulin Ratio 25-OH Vitamin D Total Free T4 Thyroxine (T4) Free T3 pg/mL Total T3 TSH 3rd Generation 04/16/19 04/16/19 04/16/19 09:16 10:18 11:08 WBC RBC Hgb Hct MCV MCH MCHC RDW Plt Count MPV Neut % (Auto) Lymph % (Auto) [place] % (Auto) Eos % (Auto) Baso % (Auto) Neut # (Auto) Lymph # (Auto) [place] # (Auto) Eos # (Auto) Baso # (Auto) Sodium Potassium Chloride Carbon Dioxide Anion Gap BUN Creatinine Est GFR ( Amer) Est GFR (Non-Af Amer) POC Glucose (mg/dL) 214 H 201 H 178 H Random Glucose Calcium Phosphorus Magnesium Total Bilirubin AST ALT Alkaline Phosphatase Total Protein Albumin Globulin Albumin/Globulin Ratio 25-OH Vitamin D Total Free T4 Thyroxine (T4) Free T3 pg/mL Total T3 TSH 3rd Generation 04/16/19 04/16/19 04/16/19 12:09 13:29 14:22 WBC RBC Hgb Hct MCV MCH MCHC RDW Plt Count MPV Neut % (Auto) Lymph % (Auto) [place] % (Auto) Eos % (Auto) Baso % (Auto) Neut # (Auto) Lymph # (Auto) [place] # (Auto) Eos # (Auto) Baso # (Auto) Sodium Potassium Chloride Carbon Dioxide Anion Gap BUN Creatinine Est GFR ( Amer) Est GFR (Non-Af Amer) POC Glucose (mg/dL) 208 H 188 H 207 H Random Glucose Calcium Phosphorus Magnesium Total Bilirubin AST ALT Alkaline Phosphatase Total Protein Albumin Globulin Albumin/Globulin Ratio 25-OH Vitamin D Total Free T4 Thyroxine (T4) Free T3 pg/mL Total T3 TSH 3rd Generation 04/16/19 04/16/19 04/16/19 15:40 16:43 17:23 WBC RBC Hgb Hct MCV MCH MCHC RDW Plt Count MPV Neut % (Auto) Lymph % (Auto) [place] % (Auto) Eos % (Auto) Baso % (Auto) Neut # (Auto) Lymph # (Auto) [place] # (Auto) Eos # (Auto) Baso # (Auto) Sodium Potassium Chloride Carbon Dioxide Anion Gap BUN Creatinine Est GFR ( Amer) Est GFR (Non-Af Amer) POC Glucose (mg/dL) 200 H 243 H 262 H Random Glucose Calcium Phosphorus Magnesium Total Bilirubin AST ALT Alkaline Phosphatase Total Protein Albumin Globulin Albumin/Globulin Ratio 25-OH Vitamin D Total Free T4 Thyroxine (T4) Free T3 pg/mL Total T3 TSH 3rd Generation 04/16/19 04/16/19 04/16/19 18:10 19:03 20:03 WBC RBC Hgb Hct MCV MCH MCHC RDW Plt Count MPV Neut % (Auto) Lymph % (Auto) [place] % (Auto) Eos % (Auto) Baso % (Auto) Neut # (Auto) Lymph # (Auto) [place] # (Auto) Eos # (Auto) Baso # (Auto) Sodium Potassium Chloride Carbon Dioxide Anion Gap BUN Creatinine Est GFR ( Amer) Est GFR (Non-Af Amer) POC Glucose (mg/dL) 252 H 271 H 215 H Random Glucose Calcium Phosphorus Magnesium Total Bilirubin AST ALT Alkaline Phosphatase Total Protein Albumin Globulin Albumin/Globulin Ratio 25-OH Vitamin D Total Free T4 Thyroxine (T4) Free T3 pg/mL Total T3 TSH 3rd Generation 04/16/19 04/16/19 04/16/19 21:21 21:38 22:28 WBC RBC Hgb Hct MCV MCH MCHC RDW Plt Count MPV Neut % (Auto) Lymph % (Auto) [place] % (Auto) Eos % (Auto) Baso % (Auto) Neut # (Auto) Lymph # (Auto) [place] # (Auto) Eos # (Auto) Baso # (Auto) Sodium 145 Potassium 3.4 L Chloride 111 H Carbon Dioxide 26 Anion Gap 12 BUN 24 H Creatinine 0.9 Est GFR ( Amer) > 60 Est GFR (Non-Af Amer) > 60 POC Glucose (mg/dL) 245 H 231 H Random Glucose 236 H Calcium 7.6 L Phosphorus 1.8 L Magnesium 2.2 Total Bilirubin 0.2 AST 31 ALT 28 Alkaline Phosphatase 71 Total Protein 5.0 L Albumin 2.8 L Globulin 2.2 Albumin/Globulin Ratio 1.3 25-OH Vitamin D Total Free T4 Thyroxine (T4) Free T3 pg/mL Total T3 TSH 3rd Generation 04/16/19 04/17/19 04/17/19 23:38 01:06 02:01 WBC RBC Hgb Hct MCV MCH MCHC RDW Plt Count MPV Neut % (Auto) Lymph % (Auto) [place] % (Auto) Eos % (Auto) Baso % (Auto) Neut # (Auto) Lymph # (Auto) [place] # (Auto) Eos # (Auto) Baso # (Auto) Sodium Potassium Chloride Carbon Dioxide Anion Gap BUN Creatinine Est GFR ( Amer) Est GFR (Non-Af Amer) POC Glucose (mg/dL) 219 H 176 H 171 H Random Glucose Calcium Phosphorus Magnesium Total Bilirubin AST ALT Alkaline Phosphatase Total Protein Albumin Globulin Albumin/Globulin Ratio 25-OH Vitamin D Total Free T4 Thyroxine (T4) Free T3 pg/mL Total T3 TSH 3rd Generation 04/17/19 04/17/19 04/17/19 02:57 04:03 05:07 WBC RBC Hgb Hct MCV MCH MCHC RDW Plt Count MPV Neut % (Auto) Lymph % (Auto) [place] % (Auto) Eos % (Auto) Baso % (Auto) Neut # (Auto) Lymph # (Auto) [place] # (Auto) Eos # (Auto) Baso # (Auto) Sodium Potassium Chloride Carbon Dioxide Anion Gap BUN Creatinine Est GFR ( Amer) Est GFR (Non-Af Amer) POC Glucose (mg/dL) 167 H 209 H 131 H Random Glucose Calcium Phosphorus Magnesium Total Bilirubin AST ALT Alkaline Phosphatase Total Protein Albumin Globulin Albumin/Globulin Ratio 25-OH Vitamin D Total Free T4 Thyroxine (T4) Free T3 pg/mL Total T3 TSH 3rd Generation 04/17/19 04/17/19 04/17/19 06:03 06:03 06:03 WBC 12.3 H RBC 3.11 L Hgb 9.5 L Hct 27.3 L MCV 88.0 MCH 30.4 MCHC 34.6 RDW 14.1 Plt Count 202 D MPV 8.1 Neut % (Auto) 71.1 Lymph % (Auto) 25.5 [place] % (Auto) 3.2 Eos % (Auto) 0.0 Baso % (Auto) 0.2 Neut # (Auto) 8.7 H Lymph # (Auto) 3.1 [place] # (Auto) 0.4 Eos # (Auto) 0.0 Baso # (Auto) 0.0 Sodium 141 Potassium 3.2 L Chloride 110 H Carbon Dioxide 27 Anion Gap 7 L BUN 14 Creatinine 0.6 L Est GFR ( Amer) > 60 Est GFR (Non-Af Amer) > 60 POC Glucose (mg/dL) Random Glucose 140 H D Calcium 7.4 L Phosphorus 2.5 Magnesium 2.0 Total Bilirubin 0.2 AST 25 ALT 22 Alkaline Phosphatase 66 Total Protein 4.5 L Albumin 2.5 L Globulin 2.0 L Albumin/Globulin Ratio 1.3 25-OH Vitamin D Total 25.4 L Free T4 Thyroxine (T4) 5.27 L Free T3 pg/mL 2.38 L Total T3 0.980 L TSH 3rd Generation 1.84 04/17/19 06:03 WBC RBC Hgb Hct MCV MCH MCHC RDW Plt Count MPV Neut % (Auto) Lymph % (Auto) [place] % (Auto) Eos % (Auto) Baso % (Auto) Neut # (Auto) Lymph # (Auto) [place] # (Auto) Eos # (Auto) Baso # (Auto) Sodium Potassium Chloride Carbon Dioxide Anion Gap BUN Creatinine Est GFR ( Amer) Est GFR (Non-Af Amer) POC Glucose (mg/dL) Random Glucose Calcium Phosphorus Magnesium Total Bilirubin AST ALT Alkaline Phosphatase Total Protein Albumin Globulin Albumin/Globulin Ratio 25-OH Vitamin D Total Free T4 1.02 Thyroxine (T4) Free T3 pg/mL Total T3 TSH 3rd Generation Assessment & Plan (1) Altered mental state Status: Acute (2) DKA (diabetic ketoacidoses) Status: Acute (3) Dehydration Status: Acute (4) Elevated WBCs Status: Acute - Assessment and Plan (Free Text) Assessment: DKA/RICCO/SEPSIS resolving leukocytosis nonspecific cultures so far negative cont empiric Rx
[2019-04-17 17:09] VITALS: RESP 20
[2019-04-17] MEDS: Pantoprazole 40 mg EC Tab PO SCH (19:39)
--- NOTE | 2019-04-17 20:17 | CP.PCM.PN ---
Subjective - Date & Time of Evaluation Date of Evaluation: 04/17/19 Time of Evaluation: 20:14 - Subjective Subjective: uncontrolled type dm Objective - Vital Signs/Intake and Output Vital Signs (last 24 hours): Temp Pulse Resp BP Pulse Ox 98.6 F 88 20 115/73 98 04/17/19 17:08 04/17/19 17:08 04/17/19 17:08 04/17/19 17:08 04/17/19 17:08 Intake and Output: 04/17/19 04/18/19 18:59 06:59 Intake Total 574 Output Total 1100 Balance -526 - Medications Medications: Current Medications Acetaminophen (Tylenol 325mg Tab) 650 mg PO Q6 PRN PRN Reason: Pain, Mild (1-3) Last Admin: 04/17/19 18:36 Dose: 650 mg Heparin Sodium (Porcine) (Heparin) 5,000 units SC Q12H [facility] Last Admin: 04/17/19 18:36 Dose: 5,000 units Hydromorphone HCl (Dilaudid) 0.5 mg IVP Q6H PRN PRN Reason: Pain, severe (8-10) Last Admin: 04/17/19 14:17 Dose: 0.5 mg Doxycycline Hyclate 100 mg/ (Sodium Chloride) 100 mls @ 100 mls/hr IVPB Q12H [facility]; Protocol Last Admin: 04/17/19 19:47 Dose: 100 mls/hr Insulin Aspart (Novolog) 0 unit SC [facility]; Protocol Last Admin: 04/17/19 16:26 Dose: 2 units Insulin Detemir (Levemir) 25 unit SC DAILY [facility] Last Admin: 04/17/19 09:33 Dose: 25 units Metoclopramide HCl (Reglan) 10 mg PO ACHS [facility] Last Admin: 04/17/19 16:31 Dose: 10 mg Pantoprazole Sodium (Protonix Ec Tab) 40 mg PO Q12H [facility] Last Admin: 04/17/19 19:39 Dose: Not Given - Labs Labs: 04/17/19 06:03 04/17/19 06:03 PT 10.3 SECONDS (9.7-12.2) 04/15/19 15:41 INR 0.9 04/15/19 15:41 APTT 25.2 SECONDS (21-34) 04/15/19 15:41 Assessment and Plan (1) DKA (diabetic ketoacidoses) Assessment & Plan: Endocrine consult f/u for uncontrolled DM Sonali Rivera is 38 y/o found unresponsive , admitted for altered mental status found with glucose > 700 , woke up without answering question or following commends after Narcan , bicarbonate , NS & epinephrines as per pt. who is awake on & off & only to self & place , has DM type 1 (+) neuropathy / gastroparesis , (+) retinopathy , (-) nephropathy (-) CAD (-) PVD outpatient diabetes management regimen : unawake of her insulin name or type , however admits to ran out for few weeks to 2 month ! inpatient diabetes management regimen: on insulin drip blood glucose log :130-200 NO hypoglycemia also denies thyroid disorder Allergy hydrocodone Past medical history:not documented Past surgical history: cholecystectomy, tonsillectomy, fascial surgery Psychiatry history: not documented , pt denied Social history: denies smoking & ETOH use , possible illicit drug use as per record review Family history: mother with HTN ROS: Constitutional: denies fever, tiredness/weakness. HEENT: denies earache, change in voice .Respiratory: denies cough, sob . CVS :no chest pain, no palpitations . Abdomen: no abdominal pain, no nausea /vomiting, no change bowel movement. [employer] : denies light-headedness, dizziness. Extremities: no edema, no tremors. Skin: no itching, no rash LMP 04/15/2019 as per pt. Physical exam Well-developed Awake & alert ,NAD VSS HEENT: norm cephalic, atraumatic, no lid lag , no exophthalmos NECK: supple, no palpable lymphadenopathy THYROID: no palpable thyromegaly, not tender CHEST: fair air entry, bilateral, CVS: S1,S2 ABDOMEN: bowel sound present, benign, obese, no wide purple striae , no bruises EXTREMITIES: no edema, clubbing or cyanosis, no palpable hand tremors Skin: no acanthosis nigricans -lab: tsh 1.8 , FT4 1.02 ,T4 5.2, ft3 2.3, T3 0.9 hyroid abs is pending , CT head (-) vitamin d 25.3 , wbc 12.3 , cultures (-) tsh 0.43 , a1c 7.8 , (+) ketones ,AG 12 , wbc 22.5 was 33.2 , h/h 9.7/27.2 , cr 0.9 , calcium 7.6 , alb 2.8 corrected 8.8 , urine 3+ glucose urine drug scree (+) oxycodone urine (-) Assessment: s/p DKA euthyroid sick elevated wbs/ sepsis/ septic shock on antibiotics , ID on board , improving altered mental status vitamin d insufficiency plan : levemir 25 units daily d/c Novolog Medium scale start regular low dose scale f/u thyroid abs vitamin d 50,000 po once , start 2,000 qd as an out patient will follow with you. Jennifer Thompson # [phone] office Fridays & Saturdays address: [address] [place] [address] ,phone # [phone] ,FAX [phone] Status: Acute (2) Altered mental state Status: Acute (3) Elevated WBCs Status: Acute (4) Euthyroid sick syndrome Status: Acute (5) Vitamin D insufficiency Status: Acute
[2019-04-17] MEDS ORDERED: Ergocalciferol 50,000 Intl Units Cap PO SCH (20:45)
--- NOTE | 2019-04-17 20:51 | CP.PCM.PN ---
Subjective - Date & Time of Evaluation Date of Evaluation: 04/17/19 Time of Evaluation: 07:00 - Subjective Subjective: dict Objective - Vital Signs/Intake and Output Vital Signs (last 24 hours): Temp Pulse Resp BP Pulse Ox 98.6 F 88 20 115/73 98 04/17/19 17:08 04/17/19 17:08 04/17/19 17:08 04/17/19 17:08 04/17/19 17:08 Intake and Output: 04/17/19 04/18/19 18:59 06:59 Intake Total 574 Output Total 1100 Balance -526 - Medications Medications: Current Medications Acetaminophen (Tylenol 325mg Tab) 650 mg PO Q6 PRN PRN Reason: Pain, Mild (1-3) Last Admin: 04/17/19 18:36 Dose: 650 mg Ergocalciferol (Drisdol 50,000 Intl Units Cap) 1 cap PO Q7D [facility] Heparin Sodium (Porcine) (Heparin) 5,000 units SC Q12H [facility] Last Admin: 04/17/19 18:36 Dose: 5,000 units Hydromorphone HCl (Dilaudid) 0.5 mg IVP Q6H PRN PRN Reason: Pain, severe (8-10) Last Admin: 04/17/19 20:26 Dose: 0.5 mg Doxycycline Hyclate 100 mg/ (Sodium Chloride) 100 mls @ 100 mls/hr IVPB Q12H [facility]; Protocol Last Admin: 04/17/19 19:47 Dose: 100 mls/hr Insulin Detemir (Levemir) 25 unit SC DAILY [facility] Last Admin: 04/17/19 09:33 Dose: 25 units Insulin Human Regular (Novolin R) 0 unit SC ACHS [facility]; Protocol Metoclopramide HCl (Reglan) 10 mg PO ACHS [facility] Last Admin: 04/17/19 16:31 Dose: 10 mg Pantoprazole Sodium (Protonix Ec Tab) 40 mg PO Q12H [facility] Last Admin: 04/17/19 19:39 Dose: Not Given - Labs Labs: 04/17/19 06:03 04/17/19 06:03 PT 10.3 SECONDS (9.7-12.2) 04/15/19 15:41 INR 0.9 04/15/19 15:41 APTT 25.2 SECONDS (21-34) 04/15/19 15:41
[2019-04-17] MEDS: (Novolin R) Insulin Human Regular 100 units/ml vial SC SCH (22:01)
[2019-04-18 00:09] VITALS: O2SAT 97
--- NOTE | 2019-04-18 01:03 | PN ---
DATE: 04/17/2019 SUBJECTIVE: The patient is afebrile. No shortness of breath. She is more alert. WBC is coming down. Her anion gap has closed. Seen by Endocrinology. PHYSICAL EXAMINATION: VITAL SIGNS: Blood pressure 115/73, pulse 83, respiratory rate 20, temperature 98.6. LUNGS: Bilateral rales. CARDIOVASCULAR SYSTEM: S1 and S2. Regular. ABDOMEN: Soft and nontender. Bowel sounds are positive. ASSESSMENT: 1. Septicemia. Chest x-ray is positive for pneumonia. 2. Diabetic ketoacidosis. 3. Drug overdose. 4. Hypokalemia. PLAN: Potassium supplementation, antibiotics, septic workup, insulin. Monitor the patient. Calvin Toth MD
[2019-04-18] MEDS: HYDROmorphone 0.5 mg/0.5 ml ISec IVP PRN ×2 (03:17→10:15)
[2019-04-18 06:14] LABS: BASO % 0.1 % (0.0-2.0); EOS % 0.2 % (0.0-4.0); HEMOGLOBIN 11.1 g/dL (11.0-16.0); LYMPH # 2.5 K/uL (1.0-4.3); LYMPH % 39.6 % (20.0-40.0); MEAN CELL VOLUME 89.4 fL (81.0-99.0); MEAN CORPUSCULAR HEMOGLOBIN 30.3 pg (27.0-31.0); MEAN CORPUSCULAR HGB CONC 33.9 g/dL (33.0-37.0); MEAN PLATELET VOLUME 8.3 fL (7.2-11.7); MONO # 0.3 K/uL (0.0-0.8); NEUT # 3.6 K/uL (1.8-7.0); NEUT % 56.1 % (50.0-75.0); RBC 3.66 Mil/uL (3.80-5.20); WHITE BLOOD COUNT 6.4 K/uL (4.8-10.8)
[2019-04-18 06:34] LABS: ALB/GLOB RATIO 1.3 (1.0-2.1); ALBUMIN 2.9 g/dL (3.5-5.0); ALT/SGPT 40 U/L (9-52); AST/SGOT 60 U/L (14-36); BLOOD UREA NITROGEN 8 mg/dL (7-17); CALCIUM 8.1 mg/dl (8.6-10.4); GFR NON-AFRICAN AMERICAN > 60
[2019-04-18] MEDS: Pantoprazole 40 mg EC Tab PO SCH (07:00)
[2019-04-18] MEDS: (Novolin R) Insulin Human Regular 100 units/ml vial SC SCH ×2 (08:25→12:20)
[2019-04-18] MEDS ORDERED: Lidocaine 5% Patch TD SCH (10:00)
--- NOTE | 2019-04-18 10:07 | HP ---
DATE OF EXAM: 04/16/2019 CHIEF COMPLAINT: Generalized weakness, and the patient was found to have some tablets on her bedside. HISTORY OF PRESENT ILLNESS: This is a 38-year-old female who was brought by ambulance. The patient was unresponsive. She was found to have multiple pill bottles at home. She was given Narcan and her blood sugar was found to be over 600. The patient was started on normal saline, and the patient received 3 packs of normal saline. Intravenous bicarbonate and two doses of Narcan. The patient also received epinephrine because her blood pressure dropped. The patient was evaluated. The patient is altered, she is drowsy, she is barely arousable, she was weak, she was lethargic. She looks pale and she looks sick. The patient is in diabetic ketoacidosis and no further details are obtainable. PAST MEDICAL HISTORY: Diabetes. No further details obtainable. SOCIAL HISTORY: Unknown. FAMILY HISTORY: Unknown. CURRENT MEDICATIONS: Unknown. PHYSICAL EXAMINATION: GENERAL: A middle-aged young female who is weak and lethargic. VITAL SIGNS: Blood pressure 94/52, pulse 127, respiratory rate 18, temperature 97.6. SKIN: Pale. No bruises. No purpura. HEENT: Atraumatic and normocephalic. The patient looks pale and sick. NECK: Supple. No JVD. No lymph node. No thyromegaly. Flat neck. CHEST WALL: Bilaterally symmetrical . LUNGS: Clear. No rales or rhonchi. CARDIOVASCULAR: S1 and S2, regular. ABDOMEN: Soft, nontender. Bowel sounds are positive. RECTAL: . EXTREMITIES: No clubbing, cyanosis, or edema. CENTRAL NERVOUS: The patient is lethargic. ASSESSMENT: 1. Diabetic ketoacidosis. 2. Drug overdose. 3. Rule out depression. 4. Anemia. PLAN: Admit to ICU. Monitor the patient. Calvin Toth MD
[2019-04-18] MEDS: Insulin Detemir 100 units/ml Vial (Levemir) SC SCH (10:16)
--- NOTE | 2019-04-18 11:16 | VASCLAB ---
Date of service: 04/18/2019 PROCEDURE: Lower Extremity Venous Duplex Exam. HISTORY: severe pain legs , L>R PRIORS: None. TECHNIQUE: Bilateral common femoral, femoral, popliteal and posterior tibial, peroneal and great saphenous veins were evaluated. Flow was assessed with color Doppler, compressibility, assessment of phasic flow and augmentation response. Report prepared by Andrae Burks, BS, RVT FINDINGS: RIGHT: 1. Common Femoral Vein: 1.1. Compressibility - Fully compressible: Thrombus - None : Flow - Phasic: Augmentation -Normal: Reflux - None. 2. Femoral Vein: 2.1. Compressibility - Fully compressible: Thrombus - None : Flow - Phasic: Augmentation -Normal: Reflux - None. 3. Popliteal Vein: 3.1. Compressibility - Fully compressible: Thrombus - None : Flow - Phasic: Augmentation -Normal: Reflux - None. 4. Posterior Tibial Vein: 4.1. Compressibility - Fully compressible: Thrombus - None: Flow - Phasic: Augmentation -Normal: Reflux - None. 5. Peroneal Vein: 5.1. Compressibility - Fully compressible: Thrombus - None: Flow - Phasic: Augmentation -Normal: Reflux - None. 6. Great Saphenous Vein: 6.1. Compressibility - Fully compressible: Thrombus - None: Flow - Phasic: Augmentation - Normal: Reflux - None. LEFT: 1. Common Femoral Vein: 1.1. Compressibility - Fully compressible: Thrombus - None: Flow - Phasic: Augmentation -Normal: Reflux - None. 2. Femoral Vein: 2.1. Compressibility - Fully compressible: Thrombus - None: Flow - Phasic: Augmentation -Normal: Reflux - None. 3. Popliteal Vein: 3.1. Compressibility - Fully compressible: Thrombus - None : Flow - Phasic: Augmentation -Normal: Reflux - None. 4. Posterior Tibial Vein: 4.1. Compressibility - Fully compressible: Thrombus - None: Flow - Phasic: Augmentation -Normal: Reflux - None. 5. Peroneal Vein: 5.1. Compressibility - Fully compressible: Thrombus - None: Flow - Phasic: Augmentation -Normal: Reflux - None. 6. Great Saphenous Vein: 6.1. Compressibility - Fully compressible: Thrombus - None: Flow - Phasic: Augmentation - Normal: Reflux - None. OTHER FINDINGS: Right: None significant. Left: None significant. IMPRESSION: Right: No evidence of deep or superficial vein thrombosis of the right lower extremity. Normal valve function noted of the right side. Left: No evidence of deep or superficial vein thrombosis of the left lower extremity. Normal valve function noted of the left side.
--- NOTE | 2019-04-18 12:33 | CP.PCM.PN ---
Subjective - Date & Time of Evaluation Date of Evaluation: 04/18/19 Time of Evaluation: 08:00 - Subjective Subjective: improving afebrile all cultures negative Objective - Vital Signs/Intake and Output Vital Signs (last 24 hours): Temp Pulse Resp BP Pulse Ox 98.6 F 78 20 114/68 97 04/18/19 08:03 04/18/19 08:03 04/18/19 08:03 04/18/19 08:03 04/18/19 08:03 Intake and Output: 04/18/19 04/18/19 06:59 18:59 Intake Total 100 410 Balance 100 410 - Medications Medications: Current Medications Acetaminophen (Tylenol 325mg Tab) 650 mg PO Q6 PRN PRN Reason: Pain, Mild (1-3) Last Admin: 04/18/19 06:28 Dose: 650 mg Ergocalciferol (Drisdol 50,000 Intl Units Cap) 1 cap PO Q7D COSME Last Admin: 04/17/19 21:51 Dose: 1 cap Heparin Sodium (Porcine) (Heparin) 5,000 units SC Q12H COSME Last Admin: 04/18/19 06:19 Dose: 5,000 units Hydromorphone HCl (Dilaudid) 0.5 mg IVP Q6H PRN PRN Reason: Pain, severe (8-10) Last Admin: 04/18/19 10:15 Dose: 0.5 mg Doxycycline Hyclate 100 mg/ (Sodium Chloride) 100 mls @ 100 mls/hr IVPB Q12H COSME; Protocol Last Admin: 04/18/19 06:16 Dose: 100 mls/hr Insulin Detemir (Levemir) 25 unit SC DAILY COSME Last Admin: 04/18/19 10:16 Dose: 25 units Insulin Human Regular (Novolin R) 0 unit SC ACHS COSME; Protocol Last Admin: 04/18/19 12:20 Dose: 5 units Lidocaine (Lidoderm) 1 ea TD DAILY COSME Last Admin: 04/18/19 10:59 Dose: 1 ea Metoclopramide HCl (Reglan) 10 mg PO ACHS COSME Last Admin: 04/18/19 12:19 Dose: 10 mg Pantoprazole Sodium (Protonix Ec Tab) 40 mg PO Q12H COSME Last Admin: 04/18/19 07:00 Dose: Not Given - Labs Labs: 04/18/19 06:07 04/18/19 06:07 PT 10.3 SECONDS (9.7-12.2) 04/15/19 15:41 INR 0.9 04/15/19 15:41 APTT 25.2 SECONDS (21-34) 04/15/19 15:41 - Constitutional Appears: Non-toxic, No Acute Distress, Chronically Ill - Head Exam Head Exam: ATRAUMATIC, NORMAL INSPECTION, NORMOCEPHALIC - Eye Exam Eye Exam: EOMI, Normal appearance, PERRL Pupil Exam: NORMAL ACCOMODATION, PERRL - ENT Exam ENT Exam: Mucous Membranes Moist, Normal Exam - Neck Exam Neck Exam: Full ROM, Normal Inspection. absent: Lymphadenopathy - Respiratory Exam Respiratory Exam: Clear to Ausculation Bilateral, NORMAL BREATHING PATTERN - Cardiovascular Exam Cardiovascular Exam: REGULAR RHYTHM, +S1, +S2. absent: Murmur - GI/Abdominal Exam GI & Abdominal Exam: Soft, Normal Bowel Sounds. absent: Tenderness - Rectal Exam Rectal Exam: Deferred - Exam Exam: NORMAL INSPECTION - Extremities Exam Extremities Exam: Full ROM, Normal Capillary Refill, Normal Inspection. absent: Joint Swelling, Pedal Edema - Back Exam Back Exam: NORMAL INSPECTION - Neurological Exam Neurological Exam: Alert, Awake, CN II-XII Intact, Normal Gait, Oriented x3 - Psychiatric Exam Psychiatric exam: Normal Affect, Normal Mood - Skin Skin Exam: Dry, Intact, Normal Color, Warm Assessment and Plan (1) Altered mental state Status: Acute (2) DKA (diabetic ketoacidoses) Status: Acute (3) Dehydration Status: Acute (4) Elevated WBCs Status: Acute - Assessment and Plan (Free Text) Assessment: cont rx as ordered
[2019-04-18] MEDS ORDERED: Pneumococcal 23-Valent Vaccine IM ONE (14:49)
--- NOTE | 2019-04-18 15:05 | CP.PCM.PN ---
Subjective - Date & Time of Evaluation Date of Evaluation: 04/18/19 Time of Evaluation: 15:05 - Subjective Subjective: alert, orientedx3, no acute distress, ambulatory. Objective - Vital Signs/Intake and Output Vital Signs (last 24 hours): Temp Pulse Resp BP Pulse Ox 98.6 F 78 20 114/68 97 04/18/19 08:03 04/18/19 08:03 04/18/19 08:03 04/18/19 08:03 04/18/19 08:03 Intake and Output: 04/18/19 04/18/19 06:59 18:59 Intake Total 100 410 Balance 100 410 - Medications Medications: Current Medications Acetaminophen (Tylenol 325mg Tab) 650 mg PO Q6 PRN PRN Reason: Pain, Mild (1-3) Last Admin: 04/18/19 06:28 Dose: 650 mg Ergocalciferol (Drisdol 50,000 Intl Units Cap) 1 cap PO Q7D COSME Last Admin: 04/17/19 21:51 Dose: 1 cap Heparin Sodium (Porcine) (Heparin) 5,000 units SC Q12H COSME Last Admin: 04/18/19 06:19 Dose: 5,000 units Hydromorphone HCl (Dilaudid) 0.5 mg IVP Q6H PRN PRN Reason: Pain, severe (8-10) Last Admin: 04/18/19 10:15 Dose: 0.5 mg Doxycycline Hyclate 100 mg/ (Sodium Chloride) 100 mls @ 100 mls/hr IVPB Q12H COSME; Protocol Last Admin: 04/18/19 06:16 Dose: 100 mls/hr Insulin Detemir (Levemir) 25 unit SC DAILY COSME Last Admin: 04/18/19 10:16 Dose: 25 units Insulin Human Regular (Novolin R) 0 unit SC ACHS COSME; Protocol Last Admin: 04/18/19 12:20 Dose: 5 units Lidocaine (Lidoderm) 1 ea TD DAILY COSME Last Admin: 04/18/19 10:59 Dose: 1 ea Metoclopramide HCl (Reglan) 10 mg PO ACHS COSME Last Admin: 04/18/19 12:19 Dose: 10 mg Pantoprazole Sodium (Protonix Ec Tab) 40 mg PO Q12H COSME Last Admin: 04/18/19 07:00 Dose: Not Given - Labs Labs: 04/18/19 06:07 04/18/19 06:07 PT 10.3 SECONDS (9.7-12.2) 04/15/19 15:41 INR 0.9 04/15/19 15:41 APTT 25.2 SECONDS (21-34) 04/15/19 15:41 Assessment and Plan - Assessment and Plan (Free Text) Assessment: 38 year old female admitted with sepsis, drug overdose, seen and examined. Alert and oriented x3, ambulatory with minimal assistance. Complaints of left leg pain, negative for DVT, pain improving with lidoderm patch. Discussed with DR Toth , plan to discharge home on po antibiotics and continue with home insulin. Advised to follow up with PMD in 1 week.
--- NOTE | 2019-04-18 15:42 | CP.PCM.PN ---
Subjective - Date & Time of Evaluation Date of Evaluation: 04/18/19 Time of Evaluation: 15:35 - Subjective Subjective: Nephrology Consultation Note Assessment: Stable Acute Kidney Injury (N17.9) improved severe DKA uncontrolled type 1 Dm vit d insuff hyperkalemia hypokalemia 3 mm non obs calculus Plan No acute need for renal replacement therapy at this time. Hypertension control with meds as ordered. Maintain hemodynamics stable. Avoid hypotension. Patient not on ACEI/ARB due to recent RICCO Monitor Input/Output, daily weights and renal function with basic metabolic panel supplement lytes as needed Dose meds/antibiotics for improved GFR. Glycemic control. endocrine following Further work up for as per primary team Thanks for allowing me to participate in care of your patient. Will follow patient with you further prn basis. Please call if any Qs Dr Jaime Kemp Office: [phone] Subjective: Noted events overnight. Patients feels better. c/o pain left leg says where narcan was given. reports DM since 1989 Denies chest pain, palpitation, shortness of breath, leg swelling. All other negative Physical Examination: General Appearance: Comfortable, in no acute respiratory distress, co-operative . Vitals reviewed and noted as below Head; Atraumatic, normocephalic ENT: no ulcers no thrush. Tongue is midline. Oropharynx: no rash or ulcers. EYES: Pupils are equal, round and reactive to light accommodation. Eye muscles and extra-ocular movement intact. Sclera is anicteric. Neck; supple no lymphadenopathy, no thyromegaly or bruit Lungs: Normal respiratory rate/effort. Breath sounds bilateral equal and clear Heart: Normal rate. s1s2 normal. No rub or gallop. Extremities: trace edema. No varicose veins Neurological: Patient is alert, awake and oriented to person, place and time. No focal deficit. Strength bilateral appropriate and equal Skin: Warm and dry. Normal turgor. No rash. Palpitation: Normal elasticity for age Abdomen: Abdomen is soft. Bowel sounds +. There is no abdominal tenderness, no guarding/rigidity no organomegaly Psych: normal insight and normal affect/mood MSK: no joint tenderness or swelling. Digits and nails normal, no deformity : kidney or bladder not palpable Labs/imaging reviewed. Past medical history, past surgical history, family history, social history, allergy reviewed and noted as below Family hx: no hx of CKD. Rest non-contributory Objective - Vital Signs/Intake and Output Vital Signs (last 24 hours): Temp Pulse Resp BP Pulse Ox 98.6 F 78 20 114/68 97 04/18/19 08:03 04/18/19 08:03 04/18/19 08:03 04/18/19 08:03 04/18/19 08:03 Intake and Output: 04/18/19 04/18/19 06:59 18:59 Intake Total 100 410 Balance 100 410 - Medications Medications: Current Medications Acetaminophen (Tylenol 325mg Tab) 650 mg PO Q6 PRN PRN Reason: Pain, Mild (1-3) Last Admin: 04/18/19 06:28 Dose: 650 mg Ergocalciferol (Drisdol 50,000 Intl Units Cap) 1 cap PO Q7D COSME Last Admin: 04/17/19 21:51 Dose: 1 cap Heparin Sodium (Porcine) (Heparin) 5,000 units SC Q12H COSME Last Admin: 04/18/19 06:19 Dose: 5,000 units Hydromorphone HCl (Dilaudid) 0.5 mg IVP Q6H PRN PRN Reason: Pain, severe (8-10) Last Admin: 04/18/19 10:15 Dose: 0.5 mg Doxycycline Hyclate 100 mg/ (Sodium Chloride) 100 mls @ 100 mls/hr IVPB Q12H COSME; Protocol Last Admin: 04/18/19 06:16 Dose: 100 mls/hr Insulin Detemir (Levemir) 25 unit SC DAILY COSME Last Admin: 04/18/19 10:16 Dose: 25 units Insulin Human Regular (Novolin R) 0 unit SC ACHS COSME; Protocol Last Admin: 04/18/19 12:20 Dose: 5 units Lidocaine (Lidoderm) 1 ea TD DAILY COSME Last Admin: 04/18/19 10:59 Dose: 1 ea Metoclopramide HCl (Reglan) 10 mg PO ACHS COSME Last Admin: 04/18/19 12:19 Dose: 10 mg Pantoprazole Sodium (Protonix Ec Tab) 40 mg PO Q12H COSME Last Admin: 04/18/19 07:00 Dose: Not Given - Labs Labs: 04/18/19 06:07 04/18/19 06:07 PT 10.3 SECONDS (9.7-12.2) 04/15/19 15:41 INR 0.9 04/15/19 15:41 APTT 25.2 SECONDS (21-34) 04/15/19 15:41
[2019-04-18 15:58] VITALS: BP 118/86; PULSE 88; TEMP 98
--- NOTE | 2019-04-18 22:05 | CP.PCM.DIS ---
Provider - Provider Date of Admission: 04/15/19 16:02 Attending physician: Calvin Toth MD Consults: 04/15/19 19:03 Infectious Disease Consult Routine Comment: Consulting Provider: Andrae Logan Consulting Physician: Andrae Logan Reason for Consult: septic shock Nephrology Consult Routine Comment: Consulting Provider: Jaime Kemp Consulting Physician: Jaime Kemp Reason for Consult: severe acidosis/DKA 04/16/19 15:16 Endocrinology Consult Routine Comment: Consulting Provider: Jennifer Mullen Consulting Physician: Jennifer Mullen Reason for Consult: dka Time Spent in preparation of Discharge (in minutes): 30 Hospital Course - Lab Results Lab Results: Micro Results 04/17/19 17:33 Naris MRSA Culture - Final MRSA NOT DETECTED 04/16/19 03:29 Blood Blood Culture - Preliminary NO GROWTH AFTER 48 HOURS 04/16/19 03:29 Blood Blood Culture - Preliminary NO GROWTH AFTER 48 HOURS 04/16/19 06:58 Urine,Catheterized Urine Culture - Final No Growth (<1,000 CFU/ML) Most Recent Lab Values WBC 6.4 K/uL (4.8-10.8) 04/18/19 06:07 RBC 3.66 Mil/uL (3.80-5.20) L 04/18/19 06:07 Hgb 11.1 g/dL (11.0-16.0) 04/18/19 06:07 Hct 32.7 % (34.0-47.0) L 04/18/19 06:07 MCV 89.4 fL (81.0-99.0) 04/18/19 06:07 MCH 30.3 pg (27.0-31.0) 04/18/19 06:07 MCHC 33.9 g/dL (33.0-37.0) 04/18/19 06:07 RDW 14.0 % (11.5-14.5) 04/18/19 06:07 Plt Count 212 K/uL (130-400) 04/18/19 06:07 MPV 8.3 fL (7.2-11.7) 04/18/19 06:07 Neut % (Auto) 56.1 % (50.0-75.0) 04/18/19 06:07 Lymph % (Auto) 39.6 % (20.0-40.0) 04/18/19 06:07 Mckean % (Auto) 4.0 % (0.0-10.0) 04/18/19 06:07 Eos % (Auto) 0.2 % (0.0-4.0) 04/18/19 06:07 Baso % (Auto) 0.1 % (0.0-2.0) 04/18/19 06:07 Neut # (Auto) 3.6 K/uL (1.8-7.0) 04/18/19 06:07 Lymph # (Auto) 2.5 K/uL (1.0-4.3) 04/18/19 06:07 Mckean # (Auto) 0.3 K/uL (0.0-0.8) 04/18/19 06:07 Eos # (Auto) 0.0 K/uL (0.0-0.7) 04/18/19 06:07 Baso # (Auto) 0.0 K/uL (0.0-0.2) 04/18/19 06:07 Neutrophils % (Manual) 85 % (50-75) H 04/16/19 04:06 Band Neutrophils % 6 % (0-2) H 04/16/19 04:06 Lymphocytes % (Manual) 6 % (20-40) L 04/16/19 04:06 Monocytes % (Manual) 3 % (0-10) 04/16/19 04:06 Platelet Estimate Normal (NORMAL) 04/16/19 04:06 Large Platelets Present 04/16/19 04:06 Polychromasia Slight 04/16/19 04:06 Hypochromasia (manual) Slight 04/16/19 04:06 Anisocytosis (manual) Slight 04/16/19 04:06 Macrocytosis (manual) Slight 04/16/19 04:06 PT 10.3 SECONDS (9.7-12.2) 04/15/19 15:41 INR 0.9 04/15/19 15:41 APTT 25.2 SECONDS (21-34) 04/15/19 15:41 Puncture Site Rra 04/15/19 17:55 pCO2 17 mm/Hg (35-45) L* 04/15/19 17:55 pO2 55 mm/Hg (30-55) 04/15/19 22:25 HCO3 0.8 mmol/L (21-28) L* 04/15/19 17:55 ABG pH 6.89 (7.35-7.45) L* 04/15/19 17:55 ABG Total CO2 3.8 mmol/L (22-28) L 04/15/19 17:55 ABG O2 Saturation 69.5 % (95-98) L 04/15/19 17:55 ABG Base Excess -28.6 mmol/L (-2.0-3.0) L 04/15/19 17:55 Dusty Test Na 04/15/19 17:55 ABG Potassium 2.5 mmol/L (3.6-5.2) L* 04/15/19 17:55 VBG pH 7.36 (7.32-7.43) 04/15/19 22:25 VBG pCO2 23 mmHg (40-60) L 04/15/19 22:25 VBG HCO3 16.5 mmol/L 04/15/19 22:25 VBG Total CO2 13.7 mmol/L (22-28) L 04/15/19 22:25 VBG O2 Sat (Calc) 94.0 % (40-65) H 04/15/19 22:25 VBG Base Excess -10.4 mmol/L (0.0-2.0) L 04/15/19 22:25 VBG Potassium 2.6 mmol/L (3.6-5.2) L 04/15/19 22:25 A-a O2 Difference 178.0 mm/Hg 04/15/19 17:55 Respiratory Index 4.9 04/15/19 17:55 Sodium 150.0 mmol/l (132-148) H 04/15/19 22:25 Chloride 114.0 mmol/L (98-107) H 04/15/19 22:25 Glucose 493 mg/dl (65-105) H* 04/15/19 22:25 Lactate 2.2 mmol/L (0.7-2.1) H 04/15/19 22:25 Liter Flow 3.0 04/15/19 17:55 FiO2 33.0 % 04/15/19 22:25 Crit Value Called To [facility] 04/15/19 22:25 Crit Value Called By Cirilo duncan 04/15/19 22:25 Crit Value Read Back Y 04/15/19 22:25 Blood Gas Notified Time 22304/15/19 22:25 Sodium 141 mmol/L (132-148) 04/18/19 06:07 Potassium 4.2 mmol/L (3.6-5.2) 04/18/19 06:07 Chloride 104 mmol/L (98-107) 04/18/19 06:07 Carbon Dioxide 30 mmol/L (22-30) 04/18/19 06:07 Anion Gap 11 (10-20) 04/18/19 06:07 BUN 8 mg/dL (7-17) 04/18/19 06:07 Creatinine 0.5 mg/dL (0.7-1.2) L 04/18/19 06:07 Est GFR ( Amer) > 60 04/18/19 06:07 Est GFR (Non-Af Amer) > 60 04/18/19 06:07 POC Glucose (mg/dL) 359 mg/dL (65-110) H 04/18/19 11:25 Random Glucose 269 mg/dL (65-105) H D 04/18/19 06:07 Hemoglobin A1c 8.0 % (4.2-6.5) H 04/16/19 02:50 Serum Osmolality 360 mosm/kg (272-300) H 04/15/19 22:30 Calcium 8.1 mg/dl (8.6-10.4) L 04/18/19 06:07 Phosphorus 2.7 mg/dL (2.5-4.5) 04/18/19 06:07 Magnesium 1.8 mg/dL (1.6-2.3) 04/18/19 06:07 Total Bilirubin 0.4 mg/dL (0.2-1.3) 04/18/19 06:07 AST 60 U/L (14-36) H D 04/18/19 06:07 ALT 40 U/L (9-52) 04/18/19 06:07 Alkaline Phosphatase 79 U/L (38-126) 04/18/19 06:07 Total Creatine Kinase 88 U/L (30-135) 04/15/19 15:41 CK-MB (Mass) 4.91 ng/mL (0.0-3.38) H 04/15/19 15:41 Troponin I < 0.0120 ng/mL (0.00-0.120) 04/15/19 15:41 Total Protein 5.1 g/dL (6.3-8.3) L 04/18/19 06:07 Albumin 2.9 g/dL (3.5-5.0) L 04/18/19 06:07 Globulin 2.2 gm/dL (2.2-3.9) 04/18/19 06:07 Albumin/Globulin Ratio 1.3 (1.0-2.1) 04/18/19 06:07 25-OH Vitamin D Total 25.4 NG/ML (30.0-100.0) L 04/17/19 06:03 Free T4 1.02 ng/dL (0.78-2.19) 04/17/19 06:03 Thyroxine (T4) 5.27 ug/dL (5.5-11.0) L 04/17/19 06:03 Free T3 pg/mL 2.38 pg/mL (2.77-5.27) L 04/17/19 06:03 Total T3 0.980 nmol/L (1.49-2.60) L 04/17/19 06:03 TSH 3rd Generation 1.84 mIU/L (0.46-4.68) 04/17/19 06:03 Arterial Blood Potassium 2.5 mmol/L (3.6-5.2) L* 04/15/19 17:55 Venous Blood Potassium 2.6 mmol/L (3.6-5.2) L 04/15/19 22:25 Urine Color Yellow (YELLOW) 04/15/19 17:14 Urine Clarity Hazy (Clear) 04/15/19 17:14 Urine pH 5.0 (5.0-8.0) 04/15/19 17:14 Ur Specific [place] 1.016 (1.003-1.030) 04/15/19 17:14 Urine Protein Negative mg/dL (NEGATIVE) 04/15/19 17:14 Urine Glucose (UA) 3+ mg/dL (Normal) H 04/15/19 17:14 Urine Ketones 1+ mg/dL (NEGATIVE) H 04/15/19 17:14 Urine Blood 2+ (NEGATIVE) H 04/15/19 17:14 Urine Nitrate Negative (NEGATIVE) 04/15/19 17:14 Urine Bilirubin Negative (NEGATIVE) 04/15/19 17:14 Urine Urobilinogen Normal mg/dL (0.2-1.0) 04/15/19 17:14 Ur Leukocyte Esterase Neg [place]/uL (Negative) 04/15/19 17:14 Urine WBC (Auto) 7 /hpf (0-5) H 04/15/19 17:14 Urine RBC (Auto) 1 /hpf (0-3) 04/15/19 17:14 Ur Squamous Epith Cells 1 /hpf (0-5) 04/15/19 17:14 Urine Bacteria Rare (<OCC) 04/15/19 17:14 Urine Osmolality 496 mosm/kg (300-1000) 04/16/19 02:50 Ur Random Creatinine 32 mg/dL 04/16/19 02:50 U Random Total Protein 25.0 mg/dL (0.0-12.0) H 04/16/19 02:50 Ur Random Sodium 69 mmol/L 04/16/19 02:50 Ur Random Potassium 16.1 mmol/L 04/16/19 02:50 Ur Random Phosphorus 10.1 mg/dL 04/16/19 02:50 Ur Random Glucose 2354 mg/dL 04/16/19 02:50 Ur Random Calcium 3.4 mg/dL 04/16/19 02:50 Urine Magnesium < 1.2 mg/dL 04/16/19 02:50 Urine HCG, Qual Negative (NEGATIVE) 04/15/19 17:14 Urine Opiates Screen Negative (NEGATIVE) 04/15/19 17:14 U Oxycodone Qual Positive (NEGATIVE) H 04/16/19 02:50 Urine Methadone Screen Negative (NEGATIVE) 04/15/19 17:14 Ur Barbiturates Screen Negative (NEGATIVE) 04/15/19 17:14 Ur Phencyclidine Scrn Negative (NEGATIVE) 04/15/19 17:14 Ur Amphetamines Screen Negative (NEGATIVE) 04/15/19 17:14 U Benzodiazepines Scrn Negative (NEGATIVE) 04/15/19 17:14 U Oth Cocaine Metabols Negative (NEGATIVE) 04/15/19 17:14 U Cannabinoids Screen Negative (NEGATIVE) 04/15/19 17:14 B-Hydroxybutyrate 12.3 mM (0.02-0.27) H 04/15/19 20:24 Discharge Exam - Head Exam Head Exam: NORMOCEPHALIC Discharge Plan - Discharge Medications Prescriptions: Doxycycline Hyclate 100 mg PO BID #10 capsule Lidocaine 5% [Lidoderm] 1 ea TD DAILY #7 patch - Follow Up Plan Condition: GOOD Disposition: HOME/ ROUTINE Instructions: Dehydration, Adult (DC), Lidocaine (Topical), Doxycycline Referrals: Calvin Toth MD [Staff Provider] -
--- NOTE | 2019-04-19 05:23 | DS ---
HISTORY OF PRESENT ILLNESS AND HOSPITAL COURSE: This is a 38-year-old female with history of insulin-dependent diabetes and history of overdose with oxycodone. The patient was admitted to ICU. The patient was in diabetic ketoacidosis, septic with pneumonia. The patient received IV fluids, Accu-Chek sliding scale, antibiotics. The patient did well and she is for discharge. Condition upon discharge is stable. PHYSICAL EXAMINATION: VITAL SIGNS: Blood pressure 114/68, pulse 78, respiratory rate 20, and temperature 98.6. LUNGS: Bilateral basal crepitation. CARDIOVASCULAR SYSTEM: S1 and S2, regular. ABDOMEN: Soft. DISCHARGE DIAGNOSES: Pneumonia, septicemia, diabetic ketoacidosis, dehydration, hypokalemia, drug overdose. Calvin Toth MD
--- NOTE | 2019-04-20 22:26 | CARD ---
APPROVED REPORT Date of service: 04/15/2019 EKG Measurement Heart [id number] <Conclusion> Sinus tachycardia with short MO Possible Left atrial enlargement Nonspecific ST abnormality Abnormal ECG
== END 2019-04-18 17:30 | disposition home or self-care (01) | DRG 871 ==
LOC: C.ER 15:16 → C.9E 16:02 → C.9I 16:24 → C.3T 04-17 17:06
PROVIDERS: ADMIT Internal Medicine; ATTEND Internal Medicine
PROC: 05HC33Z Insertion of Infusion Device into Left Basilic Vein, Percutaneous Approach (ICD-10-PCS; principal; 2019-04-16)
PROC: B54NZZA Ultrasonography of Left Upper Extremity Veins, Guidance (ICD-10-PCS; 2019-04-16)
DX: A41.9 Sepsis, unspecified organism (principal); E10.10 Type 1 diabetes mellitus with ketoacidosis without coma; J18.9 Pneumonia, unspecified organism; R65.21 Severe sepsis with septic shock; N17.9 Acute kidney failure, unspecified; E86.0 Dehydration; E87.6 Hypokalemia; E10.43 Type 1 diabetes mellitus with diabetic autonomic (poly)neuropathy; K31.84 Gastroparesis; H57.04 Mydriasis; T50.901A Poisoning by unspecified drugs, medicaments and biological substances, accidental (unintentional), initial encounter; E10.319 Type 1 diabetes mellitus with unspecified diabetic retinopathy without macular edema; D64.9 Anemia, unspecified; E55.9 Vitamin D deficiency, unspecified; Z79.4 Long term (current) use of insulin; Z90.49 Acquired absence of other specified parts of digestive tract; Z82.49 Family history of ischemic heart disease and other diseases of the circulatory system